=== PATIENT | female | born 1955 | race Caucasian/White ===

== ENCOUNTER 2021-04-16 05:50 | Day surgery (SDC) | payer MEDICARE ==
[2021-04-16] MEDS ORDERED: Lactated Ringers 1,000 ML IV SCH (06:30)
[2021-04-16] MEDS ORDERED: DIPRIVAN 200 MG/20 ML IV ONE (07:23)
[2021-04-16] MEDS ORDERED: Xylocaine-Mpf 2% 5 Ml Vial ONE (07:23)
[2021-04-16] MEDS ORDERED: SUBLIMAZE 100 MCG/2 ML ONE (07:24)
[2021-04-16 09:04] VITALS: BP 121/80; PULSE 80; O2SAT 92
--- NOTE | 2021-04-16 10:46 | OP ---
SURGERY DATE/TIME: 04/16/2021 7730 PREOPERATIVE DIAGNOSIS: Screening exam. POSTOPERATIVE DIAGNOSIS: Small sigmoid colon polyp and sigmoid diverticulosis. PROCEDURE: Colonoscopy with cold forceps biopsy. SURGEON: Dr. Ramesh. ANESTHESIA: MAC. Medications given by anesthesia department. HISTORY: The patient is a 65-year-old white female presenting now for screening colonoscopy. The patient was appraised of the risks of the procedure including the risk of perforation, phlebitis, untoward reaction to medication, bleeding and missed lesions. The patient verbalized her understanding and desired to have the procedure performed. DESCRIPTION OF PROCEDURE: The patient was given the medications by the anesthesia department. She had continuous pulse oximetry, ECG monitoring, intermittent blood pressure monitoring. The patient was placed in the left lateral decubitus position. A digital rectal examination was performed and revealed normal anal sphincter tone and no masses. The flexible Olympus pediatric colonoscope was used to intubate the rectum. A view of the colon was developed sequentially to the cecum. Upon insertion and withdrawal was noted to be a sigmoid diverticulosis which was mild to moderate in nature and a small sigmoid colon polyp that resembled more of a mucosal fold but looked like it might have some adenomatous change. Cold biopsy forceps were used to biopsy this lesion after which the scope was removed from the patient who tolerated the procedure well and sent back to OP recovery in good condition. The prep was noted to be fair.
== END 2021-04-16 09:20 | disposition home or self-care (01) ==
LOC: SDC 05:50
PROVIDERS: ATTEND Family Medicine
DX: Z12.11 Encounter for screening for malignant neoplasm of colon (principal); K63.5 Polyp of colon; K57.90 Diverticulosis of intestine, part unspecified, without perforation or abscess without bleeding
CPT/HCPCS: 88305; J2704; J3010

== ENCOUNTER 2022-01-11 12:40 | Observation (INO) | payer MEDICARE ==
[2022-01-11] MEDS ORDERED: BABY ASPIRIN 81 MG CHEW PO ONE (12:49)
--- NOTE | 2022-01-11 12:53 | ERPHSYRPT ---
- History of Present Illness Time Seen by Provider: 01/11/22 12:49 Historian: patient Exam Limitations: no limitations Physician History: 66 years old female with history of DVT on Coumadin, GERD presented to the ER with chief complaint of sudden onset of right shoulder pain with radiation to the left chest moderate intensity, dull aching, no obvious difficulty breathing or palpitations associated with that. Patient denies any history of CAD, chest pains in the past. Denies any fever chills or cough/sick contact. Timing/Duration: today, constant, gradual onset, worse Activities at Onset: rest Quality: aching, dullness Location: shoulder Severity of Pain-Max: moderate Severity of Pain-Current: mild Modifying Factors: Worsens With: change in position Associated Symptoms: hurts to breathe, No shortness of breath Prior Chest Pain/Cardiac Workup: no prior chest pain Nitro Today/Relief: no nitro taken today Aspirin Treatment Today: no aspirin today Allergies/Adverse Reactions: No Known Drug Allergies Allergy (Verified 01/11/22 12:47) Home Medications: Cholecalciferol (Vitamin D3) [Vitamin D] 400 unit PO DAILY 04/15/12 [History] Ferrous Sulfate [Iron Supplement] 65 mg PO DAILY 04/15/12 [History] Warfarin Sodium 5 mg [Jantoven] 5 mg PO DAILY 04/15/12 [History] Amlodipine Besylate 5 mg [Norvasc 5 mg] 5 mg PO DAILY 04/11/21 [History] Calcium Carbonate [Calcium] 600 mg PO DAILY 04/11/21 [History] Folic Acid 20 mg PO BID 04/11/21 [History] Mecobalamin [B12 Active] 1,000 mcg PO DAILY 04/11/21 [History] Omeprazole 40 mg PO BID 04/11/21 [History] - Review of Systems Constitutional: No Symptoms Eyes: No Symptoms Ears, Nose, & Throat: No Symptoms Respiratory: No Symptoms Cardiac: Chest Pain Abdominal/Gastrointestinal: No Symptoms Genitourinary Symptoms: No Symptoms Musculoskeletal: No Symptoms Skin: No Symptoms Neurological: No Symptoms Psychological: No Symptoms Endocrine: No Symptoms Hematologic/Lymphatic: No Symptoms Immunological/Allergic: No Symptoms - Past Medical History Pertinent Past Medical History: Yes Neurological History: Peripheral Neuropathy, Other ENT History: No Pertinent History Cardiac History: No Pertinent History Respiratory History: No Pertinent History Endocrine Medical History: No Pertinent History, Other Musculoskeletal History: Osteoarthritis, Other GI Medical History: No Pertinent History History: No Pertinent History Psycho-Social History: No Pertinent History Female Reproductive Disorders: No Pertinent History Other Medical History: SOB AT TIMES, SJOGRENS SYNDROME, TRIGEMINAL NEUROPATHY - Past Surgical History Past Surgical History: Yes Neuro Surgical History: No Pertinent History Cardiac: Cardiac Catheterization, Vascular Surgery, Other Respiratory: Other Gastrointestinal: No Pertinent History Genitourinary: No Pertinent History Musculoskeletal: No Pertinent History Female Surgical History: Hysterectomy, Lumpectomy Other Surgical History: vascular surgery on right hand, mino filter in left groin. lung surgery partial lobe removed right side - Social History Smoking Status: Never smoker Exposure to second hand smoke: No Drug Use: none Significant Family History: no pertinent family hx - Nursing Vital Signs Nursing Vital Signs: Initial Vital Signs Temperature 98 F 01/11/22 12:48 Pulse Rate 75 01/11/22 12:48 Respiratory Rate 19 01/11/22 12:48 Blood Pressure 112/86 01/11/22 12:48 O2 Sat by Pulse Oximetry 99 01/11/22 12:48 Pain Scale Pain Intensity 7 - Physical Exam General Appearance: no apparent distress, alert Eye Exam: PERRL/EOMI Ears, Nose, Throat Exam: normal ENT inspection, pharynx normal Neck Exam: normal inspection, non-tender, supple, full range of motion Respiratory Exam: normal breath sounds, lungs clear Cardiovascular Exam: regular rate/rhythm, normal heart sounds Gastrointestinal/Abdomen Exam: soft, normal bowel sounds, No tenderness Back Exam: normal inspection Extremity Exam: normal inspection, normal range of motion, pelvis stable Neurologic Exam: alert, oriented x 3, cooperative Skin Exam: normal color SpO2 Interpretation: normal SpO2: 94 O2 Delivery: Room Air - Course EKG Interpreted by Me: RATE (72), Sinus Rhythm, NORMAL AXIS, NORMAL INTERVALS, NORMAL QRS (T wave inversion anterolateral/inferior.) Ordered Tests: Active Orders 24 hr Category Date Time Status Hat Checker STAT Care 01/11/22 12:49 Active EKG-ER Only STAT Care 01/11/22 12:49 Active IV Insertion STAT Care 01/11/22 12:49 Active Oxygen-ED Only Nasal Cannula 2 lpm Care 01/11/22 12:49 Active CHEST 1 VIEW (PORTABLE) Stat Exams 01/11/22 12:49 Completed CBC W DIFF Stat Lab 01/11/22 12:57 Completed CMP Stat Lab 01/11/22 12:57 Completed NT PRO BNP Stat Lab 01/11/22 12:57 Completed PROTIME WITH INR Stat Lab 01/11/22 12:57 Completed TROPONIN Q4H Lab 01/11/22 12:57 Completed TROPONIN Q4H Lab 01/11/22 17:00 Ordered TROPONIN Q4H Lab 01/11/22 21:00 Ordered Medication Summary Discontinued Medications Generic Name Dose Route Start Last Admin Trade Name Jocelin PRN Reason Stop Dose Admin Aspirin 324 mg 01/11/22 12:49 01/11/22 13:05 Aspirin 81 Mg Tab.Chew PO 01/11/22 12:50 243 mg STAT ONE Administration Morphine Sulfate 2 mg 01/11/22 15:01 01/11/22 15:03 Morphine Sulfate 2 Mg/Ml Inj IV 01/11/22 15:02 2 mg STAT ONE Administration Morphine Sulfate Confirm 01/11/22 15:02 Morphine Sulfate 2 Mg/Ml Inj Administered 01/11/22 15:03 Dose 2 mg .ROUTE .STK-MED ONE Ondansetron HCl 4 mg 01/11/22 15:01 01/11/22 15:03 Ondansetron Hcl 4 Mg/2 Ml Vial IV 01/11/22 15:02 4 mg STAT ONE Administration Ondansetron HCl Confirm 01/11/22 15:02 Ondansetron Hcl 4 Mg/2 Ml Vial Administered 01/11/22 15:03 Dose 4 mg .ROUTE .STK-MED ONE Lab/Rad Data: Laboratory Result Diagrams 01/11/22 12:57 01/11/22 12:57 Laboratory Results 01/11/22 01/11/22 01/11/22 Range/Units 14:17 12:57 12:57 WBC (4.0-10.5) x10^3/uL RBC (4.1-5.4) x10^6/uL Hgb (12.0-16.0) g/dL Hct (35-47) % MCV (78-100) fL MCH (26-32) pg MCHC (32-36) g/dL RDW (11.5-14.0) % Plt Count (150-450) x10^3/uL MPV (7.5-11.0) fL Gran % (36.0-66.0) % Immature Gran % (Auto) (0.00-0.4) % Nucleat RBC Rel Count (0.00-0.1) % Eos # (Auto) (0-0.5) x10^3/uL Immature Gran # (Auto) (0.00-0.03) x10^3u/L Absolute Lymphs (auto) (1.0-4.6) x10^3/uL Absolute Monos (auto) (0.0-1.3) x10^3/uL Absolute Nucleated RBC (0.00-0.01) x10^3u/L Lymphocytes % (24.0-44.0) % Monocytes % (0.0-12.0) % Eosinophils % (0.00-5.0) % Basophils % (0.0-0.4) % Absolute Granulocytes (1.4-6.9) x10^3/uL Basophils # (0-0.4) x10^3/uL PT 24.0 H (9.4-12.5) SECONDS INR 2.46 (0.8-3.0) Sodium (137-145) mmol/L Potassium (3.5-5.1) mmol/L Chloride (98-107) mmol/L Carbon Dioxide (22-30) mmol/L Anion Gap (5-15) MEQ/L BUN (7-17) mg/dL Creatinine (0.52-1.04) mg/dL Estimated GFR ML/MIN Glucose (74-106) mg/dL Calcium (8.4-10.2) mg/dL Total Bilirubin (0.2-1.3) mg/dL AST (14-36) U/L ALT (0-35) U/L Alkaline Phosphatase (38-126) U/L Troponin I < 0.012 (0.000-0.034) ng/mL NT-Pro-B Natriuret Pep (0-900) pg/mL Serum Total Protein (6.3-8.2) g/dL Albumin (3.5-5.0) g/dL Influenza Type A Ag NEGATIVE (NEGATIVE) Influenza Type B Ag NEGATIVE (NEGATIVE) RSV (PCR) NEGATIVE (Negative) SARS-CoV-2 (PCR) NEGATIVE (NEGATIVE) 10/21/22 10/21/22 Range/Units 12:57 12:57 WBC 7.7 (4.0-10.5) x10^3/uL RBC 3.88 L (4.1-5.4) x10^6/uL Hgb 11.1 L (12.0-16.0) g/dL Hct 36.1 (35-47) % MCV 93.0 (78-100) fL MCH 28.6 (26-32) pg MCHC 30.7 L (32-36) g/dL RDW 15.8 H (11.5-14.0) % Plt Count 223 (150-450) x10^3/uL MPV 10.9 (7.5-11.0) fL Gran % 75.5 H (36.0-66.0) % Immature Gran % (Auto) 0.4 (0.00-0.4) % Nucleat RBC Rel Count 0.0 (0.00-0.1) % Eos # (Auto) 0.13 (0-0.5) x10^3/uL Immature Gran # (Auto) 0.03 (0.00-0.03) x10^3u/L Absolute Lymphs (auto) 1.05 (1.0-4.6) x10^3/uL Absolute Monos (auto) 0.65 (0.0-1.3) x10^3/uL Absolute Nucleated RBC 0.00 (0.00-0.01) x10^3u/L Lymphocytes % 13.6 L (24.0-44.0) % Monocytes % 8.4 (0.0-12.0) % Eosinophils % 1.7 (0.00-5.0) % Basophils % 0.4 (0.0-0.4) % Absolute Granulocytes 5.85 (1.4-6.9) x10^3/uL Basophils # 0.03 (0-0.4) x10^3/uL PT (9.4-12.5) SECONDS INR (0.8-3.0) Sodium 138 (137-145) mmol/L Potassium 4.7 (3.5-5.1) mmol/L Chloride 105 (98-107) mmol/L Carbon Dioxide 26 (22-30) mmol/L Anion Gap 11.2 (5-15) MEQ/L BUN 22 H (7-17) mg/dL Creatinine 0.91 (0.52-1.04) mg/dL Estimated GFR > 60.0 ML/MIN Glucose 102 (74-106) mg/dL Calcium 8.6 (8.4-10.2) mg/dL Total Bilirubin 1.00 (0.2-1.3) mg/dL AST 34 (14-36) U/L ALT 26 (0-35) U/L Alkaline Phosphatase 104 (38-126) U/L Troponin I (0.000-0.034) ng/mL NT-Pro-B Natriuret Pep 7310 H (0-900) pg/mL Serum Total Protein 7.7 (6.3-8.2) g/dL Albumin 3.9 (3.5-5.0) g/dL Influenza Type A Ag (NEGATIVE) Influenza Type B Ag (NEGATIVE) RSV (PCR) (Negative) SARS-CoV-2 (PCR) (NEGATIVE) - Progress Progress: improved Air Movement: good Progress Note: 01/11/22 15:26 66 years old is evaluated for right-sided chest pain. EKG showed sinus rhythm with T wave inversion. No previous comparison available. No previous chest pain work-up done. Chest x-ray negative for any acute cardiopulmonary findings and negative initial chest pain work-up including troponin. Patient is anticoagulated on Coumadin and is therapeutic 2.4. Patient is not hypoxic, tachypneic or tachycardic. Low suspicion for PE. Discussed with Dr. Mathur and patient is admitted for rule out ACS. Plan discussed with patient and family who understand and agree with it Blood Culture(s) Obtained: No Antibiotics given: No Discussed with : Camron Will see patient in: hospital (observation) Counseled pt/family regarding: lab results, diagnosis, need for follow-up, rad results - Departure Departure Disposition: Observation Clinical Impression: Chest pain, rule out acute myocardial infarction Condition: Stable Critical Care Time: No Referrals: [facility] [Primary Care Provider] - Follow up/PCP as directed
[2022-01-11 13:19] LABS: Absolute Neutrophil Ct (ANC) 5.85 x10^3/uL (1.4-6.9); Basophil (Absolute #) 0.03 x10^3/uL (0-0.4); Eosinophil % 1.7 % (0.00-5.0); Eosinophil (Absolute #) 0.13 x10^3/uL (0-0.5); Hematocrit 36.1 % (35-47); Hemoglobin 11.1 g/dL (12.0-16.0); Lymphocyte (Absolute #) 1.05 x10^3/uL (1.0-4.6); Lymphocytes % 13.6 % (24.0-44.0); Mean Corpuscular Hemoglobin 28.6 pg (26-32); Mean Corpuscular Hgb Concent. 30.7 g/dL (32-36); Mean Platelet Volume 10.9 fL (7.5-11.0); Monocyte (Absolute #) 0.65 x10^3/uL (0.0-1.3); Monocytes % 8.4 % (0.0-12.0); Neutrophil % 75.5 % (36.0-66.0); Platelet Count 223 x10^3/uL (150-450); Red Blood Count 3.88 x10^6/uL (4.1-5.4); Red Cell Distribution Width 15.8 % (11.5-14.0); White Blood Count 7.7 x10^3/uL (4.0-10.5)
[2022-01-11 13:34] LABS: INR 2.46 (0.8-3.0)
--- NOTE | 2022-01-11 13:36 | XRAY ---
Indication: Chest pain. Comparison: October 23, 2010 Portable chest demonstrates stable right lung postsurgical changes with right lung volume loss. Minimal left base fibrosis/scarring. Remaining heart and lungs unremarkable again with chunky subcarinal calcified node. Bony thorax intact with mild osteopenia and degenerative changes. Impression: Continued nonacute chest with chronic features.
[2022-01-11 13:44] LABS: ALBUMIN 3.9 g/dL (3.5-5.0); ALKALINE PHOSPHATASE 104 U/L (38-126); ANION GAP 11.2 MEQ/L (5-15); BLOOD UREA NITROGEN 22 mg/dL (7-17); CHLORIDE 105 mmol/L (98-107); Calcium 8.6 mg/dL (8.4-10.2); Carbon Dioxide 26 mmol/L (22-30); Creatinine 1 0.91 mg/dL (0.52-1.04); EST GLOMERULAR FILTRATION RATE > 60.0 ML/MIN; Glucose 102 mg/dL (74-106); NT PRO BNP 7310 pg/mL (0-900); Potassium 4.7 mmol/L (3.5-5.1); SGOT/AST 34 U/L (14-36); SGPT/ALT 26 U/L (0-35); SODIUM 138 mmol/L (137-145); Total Protein 7.7 g/dL (6.3-8.2)
[2022-01-11] MEDS ORDERED: MORPHINE SULFATE 2 MG INJ IV ONE (15:01)
[2022-01-11] MEDS ORDERED: Zofran 4 MG/2 ML VIAL IV ONE (15:01)
[2022-01-11 15:02] LABS: INFLUENZA A NEGATIVE (NEGATIVE); INFLUENZA B NEGATIVE (NEGATIVE); RESPIRATORY SYNCTIAL VIRUS NEGATIVE (Negative); SARS-CoV-2 Xpert Express NEGATIVE (NEGATIVE)
[2022-01-11] MEDS ORDERED: MORPHINE SULFATE 2 MG INJ ONE (15:02)
[2022-01-11] MEDS ORDERED: Zofran 4 MG/2 ML VIAL ONE (15:02)
[2022-01-11] MEDS ORDERED: Zofran 4 MG/2 ML VIAL IV PRN (16:03)
[2022-01-11] MEDS ORDERED: MORPHINE SULFATE 2 MG INJ IV PRN (16:03)
[2022-01-11] MEDS ORDERED: DUONEB 0.5-3 MG/3 ml Neb IH PRN (16:03)
[2022-01-11] MEDS ORDERED: TYLENOL 325 MG PO PRN (16:03)
[2022-01-11] MEDS ORDERED: Coumadin 3 MG PO SCH ×3 (17:51→18:00)
[2022-01-11] MEDS: NORCO 5/325 MG PO PRN (18:29)
[2022-01-11] MEDS ORDERED: Protonix 40MG Tablet PO SCH (20:00)
[2022-01-12] MEDS: NORCO 5/325 MG PO PRN (01:11)
[2022-01-12 05:55] LABS: Absolute Neutrophil Ct (ANC) 6.73 x10^3/uL (1.4-6.9); Basophil (Absolute #) 0.02 x10^3/uL (0-0.4); Eosinophil % 0.1 % (0.00-5.0); Eosinophil (Absolute #) 0.01 x10^3/uL (0-0.5); Hemoglobin 10.4 g/dL (12.0-16.0); Lymphocytes % 10.8 % (24.0-44.0); Mean Cell Volume 93.4 fL (78-100); Mean Corpuscular Hemoglobin 28.6 pg (26-32); Mean Corpuscular Hgb Concent. 30.6 g/dL (32-36); Mean Platelet Volume 10.8 fL (7.5-11.0); Monocyte (Absolute #) 0.68 x10^3/uL (0.0-1.3); Monocytes % 8.1 % (0.0-12.0); Neutrophil % 80.4 % (36.0-66.0); Platelet Count 178 x10^3/uL (150-450); Red Blood Count 3.64 x10^6/uL (4.1-5.4); Red Cell Distribution Width 15.6 % (11.5-14.0); White Blood Count 8.4 x10^3/uL (4.0-10.5)
[2022-01-12 06:00] LABS: ALBUMIN 3.6 g/dL (3.5-5.0); ALKALINE PHOSPHATASE 131 U/L (38-126); ANION GAP 12.9 MEQ/L (5-15); BLOOD UREA NITROGEN 23 mg/dL (7-17); CHLORIDE 101 mmol/L (98-107); Calcium 8.2 mg/dL (8.4-10.2); Carbon Dioxide 21 mmol/L (22-30); Creatinine 1 0.87 mg/dL (0.52-1.04); EST GLOMERULAR FILTRATION RATE > 60.0 ML/MIN; Glucose 115 mg/dL (74-106); Potassium 4.6 mmol/L (3.5-5.1); SGOT/AST 79 U/L (14-36); SGPT/ALT 56 U/L (0-35); SODIUM 131 mmol/L (137-145); Total Protein 7.5 g/dL (6.3-8.2)
[2022-01-12 06:24] LABS: PROTIME 30.3 SECONDS (9.4-12.5)
[2022-01-12 06:29] LABS: INR 3.18 (0.8-3.0)
[2022-01-12] MEDS ORDERED: PROTONIX 40 MG IV IV SCH (10:00)
--- NOTE | 2022-01-12 12:02 | PCM.SSS ---
History of Present Illness - Chief Complaint Chief Complaint: Chest pain rule out acute [place] History of Present Illness: is a 66 year old female patient of Dr Ramesh who presented to the ER with acute onset of chest pain. She had pain in her right chest and shoulder, worse with cough and deep inspiration, sharp in nature. she is on coumadin with therapeutic INR on arrival. pain is resolved the morning after admission and [place] ruled out. - Review of Systems Constitutional: No Fever, No Chills Respiratory: No Cough, No Short Of Breath Cardiac: Chest Pain (resolved) Abdominal/Gastrointestinal: No Abdominal Pain, No Nausea, No Vomiting, No Diarrhea Genitourinary Symptoms: No Dysuria Skin: No Rash Hematologic/Lymphatic: No Symptoms Medications & Allergies Home Medications: Home Medication List Cholecalciferol (Vitamin D3) [Vitamin D] 400 unit PO DAILY 04/15/12 [History Confirmed 01/11/22] Ferrous Sulfate [Iron Supplement] 65 mg PO DAILY 04/15/12 [History Confirmed 01/11/22] Warfarin Sodium 5 mg [Jantoven] 5 mg PO UD 04/15/12 [History Confirmed 01/11/22] Amlodipine Besylate 5 mg [Norvasc 5 mg] 5 mg PO DAILY 04/11/21 [History Confirmed 01/11/22] Calcium Carbonate [Calcium] 600 mg PO DAILY 04/11/21 [History Confirmed 01/11/22] Folic Acid 20 mg PO BID 04/11/21 [History Confirmed 01/11/22] Mecobalamin [B12 Active] 1,000 mcg PO DAILY 04/11/21 [History Confirmed 01/11/22] Omeprazole 40 mg PO BID 04/11/21 [History Confirmed 01/11/22] Warfarin Sodium 3 mg [Coumadin 3 MG] 3 mg PO DAILY 01/11/22 [History Confirmed 01/11/22] Allergies/Adverse Reactions: Allergies Allergy/AdvReac Type Severity Reaction Status Date / Time No Known Drug Allergies Allergy Verified 01/11/22 12:47 - Past Medical History Past Medical History: Yes Neurological History: Peripheral Neuropathy, Other ENT History: No Pertinent History Cardiac History: No Pertinent History Respiratory History: No Pertinent History Endocrine Medical History: No Pertinent History, Other Musculoskelatal History: Osteoarthritis, Other GI Medical History: No Pertinent History History: No Pertinent History Pyscho-Social History: No Pertinent History Reproductive Disorders: No Pertinent History Comment: SOB AT TIMES, SJOGRENS SYNDROME, TRIGEMINAL NEUROPATHY - Female History Are you now?: No - Past Surgical History Past Surgical History: Yes Neuro Surgical History: No Pertinent History Cardiac History: Cardiac Catheterization, Vascular Surgery, Other Respiratory Surgery: Other GI Surgical History: No Pertinent History Genitourinary Surgical Hx: No Pertinent History Musculskeletal Surgical Hx: No Pertinent History Female Surgical History: Hysterectomy, Lumpectomy Other Surgical History: vascular surgery on right hand, mino filter in left groin. lung surgery partial lobe removed right side - Social History Smoking Status: Never smoker Exposure to second hand smoke: No Alcohol: None Drug Use: none Significant Family History: no pertinent family hx - Physical Exam Vital Signs: Vital Signs - 24 hr Temp Pulse Resp BP Pulse Ox 01/12/22 07:27 97.6 F 86 16 87/57 01/12/22 04:00 97.6 F 86 18 95/59 01/11/22 23:52 98.4 F 87 17 87/55 01/11/22 20:00 98.9 F 82 20 88/63 01/11/22 16:13 97.8 F 83 20 95/65 01/11/22 16:12 84 18 94 L 01/11/22 16:03 97.8 F 83 18 95/65 01/11/22 15:27 94 L 01/11/22 15:00 74 22 01/11/22 14:45 75 18 101/73 94 L 01/11/22 12:48 98 F 75 19 112/86 99 General Appearance: no apparent distress, alert Neurologic Exam: alert, oriented x 3, cooperative, normal mood/affect, nml cerebellar function, nml station & gait, sensation nml, No motor deficits Eye Exam: PERRL/EOMI, eyes nml inspection Respiratory Exam: normal breath sounds, lungs clear, No respiratory distress Cardiovascular Exam: regular rate/rhythm, normal heart sounds, normal peripheral pulses Gastrointestinal/Abdomen Exam: soft, normal bowel sounds, No tenderness, No mass Back Exam: normal inspection, normal range of motion, No CVA tenderness, No vertebral tenderness Extremity Exam: normal inspection, normal range of motion, pelvis stable Results - Labs Lab/Micro Results: Lab Results-Last 24 Hours 10/01/11/22 01/11/22 Range/Units 12:57 12:57 12:57 WBC 7.7 (4.0-10.5) x10^3/uL RBC 3.88 L (4.1-5.4) x10^6/uL Hgb 11.1 L (12.0-16.0) g/dL Hct 36.1 (35-47) % MCV 93.0 (78-100) fL MCH 28.6 (26-32) pg MCHC 30.7 L (32-36) g/dL RDW 15.8 H (11.5-14.0) % Plt Count 223 (150-450) x10^3/uL MPV 10.9 (7.5-11.0) fL Gran % 75.5 H (36.0-66.0) % Immature Gran % (Auto) 0.4 (0.00-0.4) % Nucleat RBC Rel Count 0.0 (0.00-0.1) % Eos # (Auto) 0.13 (0-0.5) x10^3/uL Immature Gran # (Auto) 0.03 (0.00-0.03) x10^3u/L Absolute Lymphs (auto) 1.05 (1.0-4.6) x10^3/uL Absolute Monos (auto) 0.65 (0.0-1.3) x10^3/uL Absolute Nucleated RBC 0.00 (0.00-0.01) x10^3u/L Lymphocytes % 13.6 L (24.0-44.0) % Monocytes % 8.4 (0.0-12.0) % Eosinophils % 1.7 (0.00-5.0) % Basophils % 0.4 (0.0-0.4) % Absolute Granulocytes 5.85 (1.4-6.9) x10^3/uL Basophils # 0.03 (0-0.4) x10^3/uL PT 24.0 H (9.4-12.5) SECONDS INR 2.46 (0.8-3.0) Sodium 138 (137-145) mmol/L Potassium 4.7 (3.5-5.1) mmol/L Chloride 105 (98-107) mmol/L Carbon Dioxide 26 (22-30) mmol/L Anion Gap 11.2 (5-15) MEQ/L BUN 22 H (7-17) mg/dL Creatinine 0.91 (0.52-1.04) mg/dL Estimated GFR > 60.0 ML/MIN Glucose 102 (74-106) mg/dL Calcium 8.6 (8.4-10.2) mg/dL Total Bilirubin 1.00 (0.2-1.3) mg/dL AST 34 (14-36) U/L ALT 26 (0-35) U/L Alkaline Phosphatase 104 (38-126) U/L Troponin I (0.000-0.034) ng/mL NT-Pro-B Natriuret Pep 7310 H (0-900) pg/mL Serum Total Protein 7.7 (6.3-8.2) g/dL Albumin 3.9 (3.5-5.0) g/dL Influenza Type A Ag (NEGATIVE) Influenza Type B Ag (NEGATIVE) RSV (PCR) (Negative) SARS-CoV-2 (PCR) (NEGATIVE) 01/11/22 01/11/22 01/11/22 Range/Units 12:57 14:17 17:15 WBC (4.0-10.5) x10^3/uL RBC (4.1-5.4) x10^6/uL Hgb (12.0-16.0) g/dL Hct (35-47) % MCV (78-100) fL MCH (26-32) pg MCHC (32-36) g/dL RDW (11.5-14.0) % Plt Count (150-450) x10^3/uL MPV (7.5-11.0) fL Gran % (36.0-66.0) % Immature Gran % (Auto) (0.00-0.4) % Nucleat RBC Rel Count (0.00-0.1) % Eos # (Auto) (0-0.5) x10^3/uL Immature Gran # (Auto) (0.00-0.03) x10^3u/L Absolute Lymphs (auto) (1.0-4.6) x10^3/uL Absolute Monos (auto) (0.0-1.3) x10^3/uL Absolute Nucleated RBC (0.00-0.01) x10^3u/L Lymphocytes % (24.0-44.0) % Monocytes % (0.0-12.0) % Eosinophils % (0.00-5.0) % Basophils % (0.0-0.4) % Absolute Granulocytes (1.4-6.9) x10^3/uL Basophils # (0-0.4) x10^3/uL PT (9.4-12.5) SECONDS INR (0.8-3.0) Sodium (137-145) mmol/L Potassium (3.5-5.1) mmol/L Chloride (98-107) mmol/L Carbon Dioxide (22-30) mmol/L Anion Gap (5-15) MEQ/L BUN (7-17) mg/dL Creatinine (0.52-1.04) mg/dL Estimated GFR ML/MIN Glucose (74-106) mg/dL Calcium (8.4-10.2) mg/dL Total Bilirubin (0.2-1.3) mg/dL AST (14-36) U/L ALT (0-35) U/L Alkaline Phosphatase (38-126) U/L Troponin I < 0.012 < 0.012 (0.000-0.034) ng/mL NT-Pro-B Natriuret Pep (0-900) pg/mL Serum Total Protein (6.3-8.2) g/dL Albumin (3.5-5.0) g/dL Influenza Type A Ag NEGATIVE (NEGATIVE) Influenza Type B Ag NEGATIVE (NEGATIVE) RSV (PCR) NEGATIVE (Negative) SARS-CoV-2 (PCR) NEGATIVE (NEGATIVE) 01/11/22 01/12/22 01/12/22 Range/Units 21:21 05:33 05:33 WBC 8.4 (4.0-10.5) x10^3/uL RBC 3.64 L (4.1-5.4) x10^6/uL Hgb 10.4 L (12.0-16.0) g/dL Hct 34.0 L (35-47) % MCV 93.4 (78-100) fL MCH 28.6 (26-32) pg MCHC 30.6 L (32-36) g/dL RDW 15.6 H (11.5-14.0) % Plt Count 178 (150-450) x10^3/uL MPV 10.8 (7.5-11.0) fL Gran % 80.4 H (36.0-66.0) % Immature Gran % (Auto) 0.4 (0.00-0.4) % Nucleat RBC Rel Count 0.0 (0.00-0.1) % Eos # (Auto) 0.01 (0-0.5) x10^3/uL Immature Gran # (Auto) 0.03 (0.00-0.03) x10^3u/L Absolute Lymphs (auto) 0.90 L (1.0-4.6) x10^3/uL Absolute Monos (auto) 0.68 (0.0-1.3) x10^3/uL Absolute Nucleated RBC 0.00 (0.00-0.01) x10^3u/L Lymphocytes % 10.8 L (24.0-44.0) % Monocytes % 8.1 (0.0-12.0) % Eosinophils % 0.1 (0.00-5.0) % Basophils % 0.2 (0.0-0.4) % Absolute Granulocytes 6.73 (1.4-6.9) x10^3/uL Basophils # 0.02 (0-0.4) x10^3/uL PT (9.4-12.5) SECONDS INR (0.8-3.0) Sodium 131 L D (137-145) mmol/L Potassium 4.6 (3.5-5.1) mmol/L Chloride 101 (98-107) mmol/L Carbon Dioxide 21 L (22-30) mmol/L Anion Gap 12.9 (5-15) MEQ/L BUN 23 H (7-17) mg/dL Creatinine 0.87 (0.52-1.04) mg/dL Estimated GFR > 60.0 ML/MIN Glucose 115 H (74-106) mg/dL Calcium 8.2 L (8.4-10.2) mg/dL Total Bilirubin 0.80 (0.2-1.3) mg/dL AST 79 H (14-36) U/L ALT 56 H (0-35) U/L Alkaline Phosphatase 131 H (38-126) U/L Troponin I < 0.012 (0.000-0.034) ng/mL NT-Pro-B Natriuret Pep (0-900) pg/mL Serum Total Protein 7.5 (6.3-8.2) g/dL Albumin 3.6 (3.5-5.0) g/dL Influenza Type A Ag (NEGATIVE) Influenza Type B Ag (NEGATIVE) RSV (PCR) (Negative) SARS-CoV-2 (PCR) (NEGATIVE) 01/12/22 Range/Units 05:33 WBC (4.0-10.5) x10^3/uL RBC (4.1-5.4) x10^6/uL Hgb (12.0-16.0) g/dL Hct (35-47) % MCV (78-100) fL MCH (26-32) pg MCHC (32-36) g/dL RDW (11.5-14.0) % Plt Count (150-450) x10^3/uL MPV (7.5-11.0) fL Gran % (36.0-66.0) % Immature Gran % (Auto) (0.00-0.4) % Nucleat RBC Rel Count (0.00-0.1) % Eos # (Auto) (0-0.5) x10^3/uL Immature Gran # (Auto) (0.00-0.03) x10^3u/L Absolute Lymphs (auto) (1.0-4.6) x10^3/uL Absolute Monos (auto) (0.0-1.3) x10^3/uL Absolute Nucleated RBC (0.00-0.01) x10^3u/L Lymphocytes % (24.0-44.0) % Monocytes % (0.0-12.0) % Eosinophils % (0.00-5.0) % Basophils % (0.0-0.4) % Absolute Granulocytes (1.4-6.9) x10^3/uL Basophils # (0-0.4) x10^3/uL PT 30.3 H (9.4-12.5) SECONDS INR 3.18 H D (0.8-3.0) Sodium (137-145) mmol/L Potassium (3.5-5.1) mmol/L Chloride (98-107) mmol/L Carbon Dioxide (22-30) mmol/L Anion Gap (5-15) MEQ/L BUN (7-17) mg/dL Creatinine (0.52-1.04) mg/dL Estimated GFR ML/MIN Glucose (74-106) mg/dL Calcium (8.4-10.2) mg/dL Total Bilirubin (0.2-1.3) mg/dL AST (14-36) U/L ALT (0-35) U/L Alkaline Phosphatase (38-126) U/L Troponin I (0.000-0.034) ng/mL NT-Pro-B Natriuret Pep (0-900) pg/mL Serum Total Protein (6.3-8.2) g/dL Albumin (3.5-5.0) g/dL Influenza Type A Ag (NEGATIVE) Influenza Type B Ag (NEGATIVE) RSV (PCR) (Negative) SARS-CoV-2 (PCR) (NEGATIVE) - Radiology Impressions Radiology Exams & Impressions: Radiology Procedures Category Date Time Status CHEST 1 VIEW (PORTABLE) Stat Exams 01/11/22 12:49 Completed - Other Procedures and Tests Respiratory Therapy 01/11/22 16:12 Respiratory Therapy Assessment ONCE Assessment/Plan (1) Chest pain, rule out acute myocardial infarction Current Visit: Yes Status: Acute Assessment & Plan: seems noncardiac in nature, has no pain at discharge. can take tylenol prn at home and f/u with Dr Ramesh Code(s): R07.9 - CHEST PAIN, UNSPECIFIED Hospital Summary - Vitals & Intake/Output Vital Signs: Vital Signs Temperature 97.6 F 01/12/22 07:27 Pulse Rate 86 01/12/22 07:27 Respiratory Rate 16 01/12/22 07:27 Blood Pressure 87/57 01/12/22 07:27 O2 Sat by Pulse Oximetry 94 L 01/11/22 16:12 Intake & Output: Intake & Output 01/09/22 01/10/22 01/11/22 01/12/22 11:59 11:59 11:59 11:59 Intake Total 1800 Balance 1800 Weight 65.6 kg - Lab Result Diagrams: 01/12/22 05:33 01/12/22 05:33 Lab Results-Last 24 Hrs: Lab Results-Last 24 Hours 01/11/22 01/11/22 01/11/22 Range/Units 12:57 12:57 12:57 WBC 7.7 (4.0-10.5) x10^3/uL RBC 3.88 L (4.1-5.4) x10^6/uL Hgb 11.1 L (12.0-16.0) g/dL Hct 36.1 (35-47) % MCV 93.0 (78-100) fL MCH 28.6 (26-32) pg MCHC 30.7 L (32-36) g/dL RDW 15.8 H (11.5-14.0) % Plt Count 223 (150-450) x10^3/uL MPV 10.9 (7.5-11.0) fL Gran % 75.5 H (36.0-66.0) % Immature Gran % (Auto) 0.4 (0.00-0.4) % Nucleat RBC Rel Count 0.0 (0.00-0.1) % Eos # (Auto) 0.13 (0-0.5) x10^3/uL Immature Gran # (Auto) 0.03 (0.00-0.03) x10^3u/L Absolute Lymphs (auto) 1.05 (1.0-4.6) x10^3/uL Absolute Monos (auto) 0.65 (0.0-1.3) x10^3/uL Absolute Nucleated RBC 0.00 (0.00-0.01) x10^3u/L Lymphocytes % 13.6 L (24.0-44.0) % Monocytes % 8.4 (0.0-12.0) % Eosinophils % 1.7 (0.00-5.0) % Basophils % 0.4 (0.0-0.4) % Absolute Granulocytes 5.85 (1.4-6.9) x10^3/uL Basophils # 0.03 (0-0.4) x10^3/uL PT 24.0 H (9.4-12.5) SECONDS INR 2.46 (0.8-3.0) Sodium 138 (137-145) mmol/L Potassium 4.7 (3.5-5.1) mmol/L Chloride 105 (98-107) mmol/L Carbon Dioxide 26 (22-30) mmol/L Anion Gap 11.2 (5-15) MEQ/L BUN 22 H (7-17) mg/dL Creatinine 0.91 (0.52-1.04) mg/dL Estimated GFR > 60.0 ML/MIN Glucose 102 (74-106) mg/dL Calcium 8.6 (8.4-10.2) mg/dL Total Bilirubin 1.00 (0.2-1.3) mg/dL AST 34 (14-36) U/L ALT 26 (0-35) U/L Alkaline Phosphatase 104 (38-126) U/L Troponin I (0.000-0.034) ng/mL NT-Pro-B Natriuret Pep 7310 H (0-900) pg/mL Serum Total Protein 7.7 (6.3-8.2) g/dL Albumin 3.9 (3.5-5.0) g/dL Influenza Type A Ag (NEGATIVE) Influenza Type B Ag (NEGATIVE) RSV (PCR) (Negative) SARS-CoV-2 (PCR) (NEGATIVE) 01/11/22 01/11/22 01/11/22 Range/Units 12:57 14:17 17:15 WBC (4.0-10.5) x10^3/uL RBC (4.1-5.4) x10^6/uL Hgb (12.0-16.0) g/dL Hct (35-47) % MCV (78-100) fL MCH (26-32) pg MCHC (32-36) g/dL RDW (11.5-14.0) % Plt Count (150-450) x10^3/uL MPV (7.5-11.0) fL Gran % (36.0-66.0) % Immature Gran % (Auto) (0.00-0.4) % Nucleat RBC Rel Count (0.00-0.1) % Eos # (Auto) (0-0.5) x10^3/uL Immature Gran # (Auto) (0.00-0.03) x10^3u/L Absolute Lymphs (auto) (1.0-4.6) x10^3/uL Absolute Monos (auto) (0.0-1.3) x10^3/uL Absolute Nucleated RBC (0.00-0.01) x10^3u/L Lymphocytes % (24.0-44.0) % Monocytes % (0.0-12.0) % Eosinophils % (0.00-5.0) % Basophils % (0.0-0.4) % Absolute Granulocytes (1.4-6.9) x10^3/uL Basophils # (0-0.4) x10^3/uL PT (9.4-12.5) SECONDS INR (0.8-3.0) Sodium (137-145) mmol/L Potassium (3.5-5.1) mmol/L Chloride (98-107) mmol/L Carbon Dioxide (22-30) mmol/L Anion Gap (5-15) MEQ/L BUN (7-17) mg/dL Creatinine (0.52-1.04) mg/dL Estimated GFR ML/MIN Glucose (74-106) mg/dL Calcium (8.4-10.2) mg/dL Total Bilirubin (0.2-1.3) mg/dL AST (14-36) U/L ALT (0-35) U/L Alkaline Phosphatase (38-126) U/L Troponin I < 0.012 < 0.012 (0.000-0.034) ng/mL NT-Pro-B Natriuret Pep (0-900) pg/mL Serum Total Protein (6.3-8.2) g/dL Albumin (3.5-5.0) g/dL Influenza Type A Ag NEGATIVE (NEGATIVE) Influenza Type B Ag NEGATIVE (NEGATIVE) RSV (PCR) NEGATIVE (Negative) SARS-CoV-2 (PCR) NEGATIVE (NEGATIVE) 01/11/22 01/12/22 01/12/22 Range/Units 21:21 05:33 05:33 WBC 8.4 (4.0-10.5) x10^3/uL RBC 3.64 L (4.1-5.4) x10^6/uL Hgb 10.4 L (12.0-16.0) g/dL Hct 34.0 L (35-47) % MCV 93.4 (78-100) fL MCH 28.6 (26-32) pg MCHC 30.6 L (32-36) g/dL RDW 15.6 H (11.5-14.0) % Plt Count 178 (150-450) x10^3/uL MPV 10.8 (7.5-11.0) fL Gran % 80.4 H (36.0-66.0) % Immature Gran % (Auto) 0.4 (0.00-0.4) % Nucleat RBC Rel Count 0.0 (0.00-0.1) % Eos # (Auto) 0.01 (0-0.5) x10^3/uL Immature Gran # (Auto) 0.03 (0.00-0.03) x10^3u/L Absolute Lymphs (auto) 0.90 L (1.0-4.6) x10^3/uL Absolute Monos (auto) 0.68 (0.0-1.3) x10^3/uL Absolute Nucleated RBC 0.00 (0.00-0.01) x10^3u/L Lymphocytes % 10.8 L (24.0-44.0) % Monocytes % 8.1 (0.0-12.0) % Eosinophils % 0.1 (0.00-5.0) % Basophils % 0.2 (0.0-0.4) % Absolute Granulocytes 6.73 (1.4-6.9) x10^3/uL Basophils # 0.02 (0-0.4) x10^3/uL PT (9.4-12.5) SECONDS INR (0.8-3.0) Sodium 131 L D (137-145) mmol/L Potassium 4.6 (3.5-5.1) mmol/L Chloride 101 (98-107) mmol/L Carbon Dioxide 21 L (22-30) mmol/L Anion Gap 12.9 (5-15) MEQ/L BUN 23 H (7-17) mg/dL Creatinine 0.87 (0.52-1.04) mg/dL Estimated GFR > 60.0 ML/MIN Glucose 115 H (74-106) mg/dL Calcium 8.2 L (8.4-10.2) mg/dL Total Bilirubin 0.80 (0.2-1.3) mg/dL AST 79 H (14-36) U/L ALT 56 H (0-35) U/L Alkaline Phosphatase 131 H (38-126) U/L Troponin I < 0.012 (0.000-0.034) ng/mL NT-Pro-B Natriuret Pep (0-900) pg/mL Serum Total Protein 7.5 (6.3-8.2) g/dL Albumin 3.6 (3.5-5.0) g/dL Influenza Type A Ag (NEGATIVE) Influenza Type B Ag (NEGATIVE) RSV (PCR) (Negative) SARS-CoV-2 (PCR) (NEGATIVE) 01/12/22 Range/Units 05:33 WBC (4.0-10.5) x10^3/uL RBC (4.1-5.4) x10^6/uL Hgb (12.0-16.0) g/dL Hct (35-47) % MCV (78-100) fL MCH (26-32) pg MCHC (32-36) g/dL RDW (11.5-14.0) % Plt Count (150-450) x10^3/uL MPV (7.5-11.0) fL Gran % (36.0-66.0) % Immature Gran % (Auto) (0.00-0.4) % Nucleat RBC Rel Count (0.00-0.1) % Eos # (Auto) (0-0.5) x10^3/uL Immature Gran # (Auto) (0.00-0.03) x10^3u/L Absolute Lymphs (auto) (1.0-4.6) x10^3/uL Absolute Monos (auto) (0.0-1.3) x10^3/uL Absolute Nucleated RBC (0.00-0.01) x10^3u/L Lymphocytes % (24.0-44.0) % Monocytes % (0.0-12.0) % Eosinophils % (0.00-5.0) % Basophils % (0.0-0.4) % Absolute Granulocytes (1.4-6.9) x10^3/uL Basophils # (0-0.4) x10^3/uL PT 30.3 H (9.4-12.5) SECONDS INR 3.18 H D (0.8-3.0) Sodium (137-145) mmol/L Potassium (3.5-5.1) mmol/L Chloride (98-107) mmol/L Carbon Dioxide (22-30) mmol/L Anion Gap (5-15) MEQ/L BUN (7-17) mg/dL Creatinine (0.52-1.04) mg/dL Estimated GFR ML/MIN Glucose (74-106) mg/dL Calcium (8.4-10.2) mg/dL Total Bilirubin (0.2-1.3) mg/dL AST (14-36) U/L ALT (0-35) U/L Alkaline Phosphatase (38-126) U/L Troponin I (0.000-0.034) ng/mL NT-Pro-B Natriuret Pep (0-900) pg/mL Serum Total Protein (6.3-8.2) g/dL Albumin (3.5-5.0) g/dL Influenza Type A Ag (NEGATIVE) Influenza Type B Ag (NEGATIVE) RSV (PCR) (Negative) SARS-CoV-2 (PCR) (NEGATIVE) - Radiology Exams Ordered Rad Exams-Entire Visit: Radiology Procedures Category Date Time Status CHEST 1 VIEW (PORTABLE) Stat Exams 01/11/22 12:49 Completed - Procedures and Test Procedures and Tests throughout Hospitalization: Therapy Orders & Screens 01/11/22 16:12 Respiratory Therapy Assessment ONCE Comment: Diagnosis: Chest pain rule out acute [place] - Discharge Disposition: Home, Self-Care Condition: Stable Prescriptions: Continue Ferrous Sulfate [Iron Supplement] 65 mg PO DAILY Cholecalciferol (Vitamin D3) [Vitamin D] 400 unit PO DAILY Warfarin Sodium 5 mg [Jantoven] 5 mg PO UD Calcium Carbonate [Calcium] 600 mg PO DAILY Folic Acid 20 mg PO BID Amlodipine Besylate 5 mg [Norvasc 5 mg] 5 mg PO DAILY Omeprazole 40 mg PO BID Mecobalamin [B12 Active] 1,000 mcg PO DAILY Warfarin Sodium 3 mg [Coumadin 3 MG] 3 mg PO DAILY Instructions: Shoulder Pain (DC) Follow up with: RINA SANCHEZ MD [ACTIVE STAFF] - Call for Appointment (CALL ON Friday01/14/22 AND SCHEDULE FOLLOW UP. ) Forms: Discharge Instructions
[2022-01-12 12:50] VITALS: BP 87/54; PULSE 82; O2SAT 92
== END 2022-01-12 14:05 | disposition home or self-care (01) ==
LOC: ED 12:40 → MED SURG 15:56
PROVIDERS: ADMIT Family Medicine; ATTEND Family Medicine
DX: R07.9 Chest pain, unspecified (principal); Z79.899 Other long term (current) drug therapy; Z79.01 Long term (current) use of anticoagulants; Z20.828 Contact with and (suspected) exposure to other viral communicable diseases
CPT/HCPCS: 0241U; 36000; 36415; 71045; 80053; 83880; 84484; 85025; 85610; 93005; 93041; 93268; 96374; 96375; 99285; G0378; J2270; J2405; A9270-GY

== ENCOUNTER 2022-11-28 17:16 | Observation (INO) | payer MEDICARE ==
[2022-11-28] MEDS ORDERED: SUBLIMAZE 100 MCG/2 ML IV ONE (17:49)
[2022-11-28] MEDS ORDERED: Zofran 4 MG/2 ML VIAL IV ONE (17:49)
[2022-11-28] MEDS ORDERED: SUBLIMAZE 100 MCG/2 ML ONE (17:53)
[2022-11-28] MEDS ORDERED: Zofran 4 MG/2 ML VIAL ONE (17:53)
[2022-11-28 18:26] LABS: Hematocrit 41.4 % (35-47); Hemoglobin 13.2 g/dL (12.0-16.0); Mean Cell Volume 94.1 fL (78-100); Mean Corpuscular Hgb Concent. 31.9 g/dL (32-36); Mean Platelet Volume 9.6 fL (7.5-11.0); Platelet Count 163 x10^3/uL (150-450); Red Cell Distribution Width 19.5 % (11.5-14.0); White Blood Count 13.5 x10^3/uL (4.0-10.5)
[2022-11-28 18:40] LABS: INR 1.96 (0.8-3.0); PROTIME 20.3 SECONDS (9.4-12.5)
[2022-11-28 18:50] LABS: ALBUMIN 3.1 g/dL (3.5-5.0); ALKALINE PHOSPHATASE 92 U/L (38-126); ANION GAP 8.4 MEQ/L (5-15); BLOOD UREA NITROGEN 28 mg/dL (7-17); CHLORIDE 103 mmol/L (98-107); Calcium 7.9 mg/dL (8.4-10.2); Carbon Dioxide 27 mmol/L (22-30); Creatinine 1 0.57 mg/dL (0.52-1.04); EST GLOMERULAR FILTRATION RATE > 60.0 ML/MIN; Glucose 116 mg/dL (74-106); NT PRO BNPII 12500 pg/mL (<300); Potassium 3.9 mmol/L (3.5-5.1); SGOT/AST 28 U/L (14-36); SGPT/ALT 35 U/L (0-35); SODIUM 134 mmol/L (137-145); Total Protein 5.9 g/dL (6.3-8.2)
[2022-11-28] MEDS ORDERED: CLINDAMYCIN-D5W 600 MG/50 ML*** 600 MG/50 ML BAG IV STA (19:37)
[2022-11-28] MEDS ORDERED: PIPERACILLIN/TAZOBACTAM 3.375 GM in Sodium Chloride 100ML MINI-BAG PLUS 100 ML IV ONE (19:37)
[2022-11-28 20:00] LABS: Eosinophil 1 % (0.00-3.0); Lymphocytes 6 % (24-44); Microcytosis 1+; Neutrophils 93 % (36.0-66.0); Platelet Estimate NORMAL (NORMAL); Total Cells Counted 100
[2022-11-28] MEDS ORDERED: NORCO 5/325 MG PO ONE (20:12)
[2022-11-28] MEDS ORDERED: NORCO 5/325 MG ONE (20:27)
[2022-11-28] MEDS ORDERED: PIPERACILLIN/TAZOBACTAM IV ONE (20:27)
[2022-11-28] MEDS ORDERED: Sodium Chloride 100ML MINI-BAG PLUS 100 ML IV ONE (20:28)
--- NOTE | 2022-11-28 20:46 | ERPHSYRPT ---
- History of Present Illness Time Seen by Provider: 11/28/22 17:30 Source: patient Exam Limitations: no limitations Patient Subjective Stated Complaint: pt states that she has this spot on her leg and the pain has gotten worse Triage Nursing Assessment: pt came into the er via ambulance; pt was transferred to cot per ems staff; axo x4; c/o LLE pain; redness present to LLE; BLE pitting edema; weak pedal pulses; 3 cm diameter reddened area on medial left calf; no warmth present to LLE; vitals wnl; no respiratory distress present Physician History: 67-year-old female with multiple medical problems including metastatic lung cancer status post chemo and radiation to the brain, hypertension, COPD, chronic lower extremity swelling, chronic DVT, PE, 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 Patient reports moderate to severe sharp pain with palpation and difficult ambulation because of pain in the muscle. Denies any fall or trauma. No fever or chills reported. Allergies/Adverse Reactions: No Known Drug Allergies Allergy (Verified 01/11/22 12:47) Home Medications: Ferrous Sulfate [Iron Supplement] 65 mg PO DAILY 04/15/12 [History] Mecobalamin [B12 Active] 1,000 mcg PO DAILY 04/11/21 [History] Omeprazole 40 mg PO BID 04/11/21 [History] Warfarin Sodium 3 mg [Coumadin 3 MG] 3 mg PO UD 01/11/22 [History] Atorvastatin Calcium 10 mg PO HS 11/28/22 [History] Calcium Carbonate [Calcium] 600 mg PO DAILY 11/28/22 [History] Folic Acid 20 mg PO BID 11/28/22 [History] Meclizine HCl 25 mg [Antivert 25 mg] 25 mg PO TID PRN 11/28/22 [History] Warfarin Sodium 2 mg PO UD 11/28/22 [History] carvediloL [Carvedilol] 6.25 mg PO BID 11/28/22 [History] dexAMETHasone [Dexamethasone] 4 mg PO BID 11/28/22 [History] Hx Tetanus, Diphtheria Vaccination/Date Given: No Hx Influenza Vaccination/Date Given: Yes Hx Pneumococcal Vaccination/Date Given: Yes Travel Risk - International Travel Have you traveled outside of the country in past 3 weeks: No - Coronavirus Screening Are you exhibiting any of the following symptoms?: No Close contact with a COVID-19 positive Pt in past 14-21 Days: No - Vaccine Status Have you recieved a Covid-19 vaccination: Yes Molding Manager: Pfizer - Vaccination Dates Date of 2cond Vaccination (if applicable): 2020 - Review of Systems Constitutional: Fatigue, Weakness Eyes: No Symptoms Ears, Nose, & Throat: No Symptoms Respiratory: Dyspnea Cardiac: Edema Abdominal/Gastrointestinal: No Symptoms Genitourinary Symptoms: No Symptoms Musculoskeletal: Arthralgias Skin: Induration, Rash, Skin Lesions Neurological: No Symptoms Endocrine: No Symptoms Hematologic/Lymphatic: No Symptoms - Past Medical History Pertinent Past Medical History: Yes Neurological History: Peripheral Neuropathy, Other ENT History: No Pertinent History Cardiac History: No Pertinent History Respiratory History: No Pertinent History Endocrine Medical History: No Pertinent History, Other Musculoskeletal History: Osteoarthritis, Other GI Medical History: No Pertinent History History: No Pertinent History Psycho-Social History: No Pertinent History Female Reproductive Disorders: No Pertinent History Other Medical History: SOB AT TIMES, SJOGRENS SYNDROME, TRIGEMINAL NEUROPATHY - Past Surgical History Past Surgical History: Yes Neuro Surgical History: No Pertinent History Cardiac: Cardiac Catheterization, Vascular Surgery, Other Respiratory: Other Gastrointestinal: No Pertinent History Genitourinary: No Pertinent History Musculoskeletal: No Pertinent History Female Surgical History: Hysterectomy, Lumpectomy Other Surgical History: vascular surgery on right hand, mino filter in left groin. lung surgery partial lobe removed right side - Social History Smoking Status: Never smoker Exposure to second hand smoke: Yes Drug Use: none Patient Lives Alone: No Significant Family History: no pertinent family hx - Nursing Vital Signs Nursing Vital Signs: Initial Vital Signs Pulse Rate 88 11/28/22 17:17 Blood Pressure 117/80 11/28/22 17:17 O2 Sat by Pulse Oximetry 98 11/28/22 17:17 Pain Scale Pain Intensity 10 - Physical Exam General Appearance: no apparent distress, alert Eye Exam: PERRL/EOMI Ears, Nose, Throat Exam: normal ENT inspection Neck Exam: normal inspection, full range of motion Respiratory Exam: diminished breath sounds, wheezing Cardiovascular Exam: regular rate/rhythm, normal heart sounds Gastrointestinal/Abdomen Exam: soft, normal bowel sounds, No tenderness Back Exam: normal inspection Extremity Exam: normal range of motion, swelling (Bilateral lower extremity 2+ pitting edema. Redness/erythema on medial calf. Weakly palpable bilateral dorsalis pedis. Cap refill less than 3 seconds.) Neurologic Exam: alert, oriented x 3, cooperative Skin Exam: normal color, rash SpO2 Interpretation: normal SpO2: 97 Ordered Tests: Active Orders 24 hr Category Date Time Status VENOUS UNILAT/LIMITED EXTREMIT [US] Stat Exams 11/28/22 17:49 Taken BLOOD CULTURE Stat Lab 11/28/22 18:20 Received CBC W DIFF Stat Lab 11/28/22 18:10 Completed CMP Stat Lab 11/28/22 18:10 Completed Lactic Acid Stat Lab 11/28/22 18:12 Completed Lactic Acid Stat Lab 11/28/22 20:25 Stop Req Manual Differential NC Stat Lab 11/28/22 18:10 Completed NT PRO BNPII Stat Lab 11/28/22 18:10 Completed PROCALCITONIN Stat Lab 11/28/22 18:10 Completed PROTIME WITH INR Stat Lab 11/28/22 18:10 Completed UA W/RFX UR CULTURE Stat Lab 11/28/22 17:48 Ordered Medication Summary Discontinued Medications Generic Name Dose Route Start Last Admin Trade Name Jocelin PRN Reason Stop Dose Admin Hydrocodone Bitart/Acetaminophen 1 tab 11/28/22 20:12 11/28/22 20:33 Hydrocodone/Apap 5/325 1 Tab Tablet PO 11/28/22 20:13 1 tab STAT ONE Administration Hydrocodone Bitart/Acetaminophen Confirm 11/28/22 20:27 Hydrocodone/Apap 5/325 1 Tab Tablet Administered 11/28/22 20:28 Dose 1 tab .ROUTE .STK-MED ONE Fentanyl Citrate 50 mcg 11/28/22 17:49 11/28/22 17:54 Fentanyl Citrate 100 Mcg/2 Ml* Vial IV 11/28/22 17:50 50 mcg STAT ONE Administration Fentanyl Citrate Confirm 11/28/22 17:53 Fentanyl Citrate 100 Mcg/2 Ml* Vial Administered 11/28/22 17:54 Dose 100 mcg .ROUTE .STK-MED ONE Clindamycin HCl/Dextrose 600 mg in 50 mls @ 100 mls/hr 11/28/22 19:37 Clindamycin-D5w 600 Mg/50 Ml IV 11/28/22 20:06 STAT STA Piperacillin Sod/Tazobactam 100 mls @ 200 mls/hr 11/28/22 19:37 11/28/22 2 0:34 Sod 3.375 gm/ Sodium Chloride IV 11/28/22 20:06 200 mls/hr STAT ONE Administration Sodium Chloride Confirm 11/28/22 20:28 Sodium Chloride 100ml Mini-Bag Plus Administered 11/28/22 20:29 Dose 100 mls @ ud IV .STK-MED ONE Ondansetron HCl 4 mg 11/28/22 17:49 11/28/22 17:55 Ondansetron Hcl 4 Mg/2 Ml Vial IV 11/28/22 17:50 4 mg STAT ONE Administration Ondansetron HCl Confirm 11/28/22 17:53 Ondansetron Hcl 4 Mg/2 Ml Vial Administered 11/28/22 17:54 Dose 4 mg .ROUTE .STK-MED ONE Piperacillin Sod/Tazobactam Sod Confirm 11/28/22 20:27 Piperacillin/Tazobactam Sodium 3.375 Gm Vial Administered 11/28/22 20:28 Dose 3.375 gm IV .STK-MED ONE Lab/Rad Data: Laboratory Result Diagrams 11/28/22 18:10 11/28/22 18:10 Laboratory Results 11/28/22 11/28/22 11/28/22 Range/Units 18:12 18:10 18:10 WBC (4.0-10.5) x10^3/uL RBC (4.1-5.4) x10^6/uL Hgb (12.0-16.0) g/dL Hct (35-47) % MCV (78-100) fL MCH (26-32) pg MCHC (32-36) g/dL RDW (11.5-14.0) % Plt Count (150-450) x10^3/uL MPV (7.5-11.0) fL Segmented Neutrophils (36.0-66.0) % Lymphocytes (Manual) (24-44) % Eosinophils (Manual) (0.00-3.0) % Platelet Estimate (NORMAL) RBC Morphology Microcytosis PT 20.3 H (9.4-12.5) SECONDS INR 1.96 (0.8-3.0) Sodium (137-145) mmol/L Potassium (3.5-5.1) mmol/L Chloride (98-107) mmol/L Carbon Dioxide (22-30) mmol/L Anion Gap (5-15) MEQ/L BUN (7-17) mg/dL Creatinine (0.52-1.04) mg/dL Estimated GFR ML/MIN Glucose (74-106) mg/dL Lactic Acid 2.0 (0.4-2.0) Calcium (8.4-10.2) mg/dL Total Bilirubin (0.2-1.3) mg/dL AST (14-36) U/L ALT (0-35) U/L Alkaline Phosphatase (38-126) U/L NT-Pro-B Natriuret Pep (<300) pg/mL Serum Total Protein (6.3-8.2) g/dL Albumin (3.5-5.0) g/dL Procalcitonin 0.101 H (0.030-0.080) ng/mL 11/28/22 11/28/22 Range/Units 18:10 18:10 WBC 13.5 H (4.0-10.5) x10^3/uL RBC 4.40 (4.1-5.4) x10^6/uL Hgb 13.2 (12.0-16.0) g/dL Hct 41.4 (35-47) % MCV 94.1 (78-100) fL MCH 30.0 (26-32) pg MCHC 31.9 L (32-36) g/dL RDW 19.5 H (11.5-14.0) % Plt Count 163 (150-450) x10^3/uL MPV 9.6 (7.5-11.0) fL Segmented Neutrophils 93 H (36.0-66.0) % Lymphocytes (Manual) 6 L (24-44) % Eosinophils (Manual) 1 (0.00-3.0) % Platelet Estimate NORMAL (NORMAL) RBC Morphology ABNORMAL Microcytosis 1+ PT (9.4-12.5) SECONDS INR (0.8-3.0) Sodium 134 L (137-145) mmol/L Potassium 3.9 (3.5-5.1) mmol/L Chloride 103 (98-107) mmol/L Carbon Dioxide 27 (22-30) mmol/L Anion Gap 8.4 (5-15) MEQ/L BUN 28 H (7-17) mg/dL Creatinine 0.57 (0.52-1.04) mg/dL Estimated GFR > 60.0 ML/MIN Glucose 116 H (74-106) mg/dL Lactic Acid (0.4-2.0) Calcium 7.9 L (8.4-10.2) mg/dL Total Bilirubin 0.90 (0.2-1.3) mg/dL AST 28 (14-36) U/L ALT 35 (0-35) U/L Alkaline Phosphatase 92 (38-126) U/L NT-Pro-B Natriuret Pep 53030 (<300) pg/mL Serum Total Protein 5.9 L (6.3-8.2) g/dL Albumin 3.1 L (3.5-5.0) g/dL Procalcitonin (0.030-0.080) ng/mL - Progress Progress: improved, pain not gone completely, re-examined Progress Note: 11/28/22 20:44 67-year-old female with multiple medical problems including metastatic lung cancer status post chemo and radiation to the brain, hypertension, COPD, chronic lower extremity swelling, chronic DVT, PE, 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 Patient reports moderate to severe sharp pain with palpation and difficult ambulation because of pain in the muscle. Denies any fall or trauma. No fever or chills reported. She has left lower extremity cellulitis with edema. Warm and tender to touch. Distal neurovascular intact. Obtained ultrasound which showed nonocclusive DVT but good flow per preliminary report which I believe is old. Patient has been without replacement. INR is 1.96. Work-up showed white count of 13, fairly unremarkable chemistries, lactate of 2.0 and procalcitonin 1.1. I believe patient has cellulitis and started on Zosyn and clindamycin. Blood cultures are obtained. I have discussed work-up with Dr. Adams, reviewed history, work-up and current management, agreed with admission. I have discussed the results of work-up with patient and family and plan of admission understand and agree with it. 11/28/22 20:45 Discussed with : Meli Counseled pt/family regarding: lab results, diagnosis, need for follow-up, rad results Medical Desision Making - Independent Historian Additional History obtained from: Spouse - Discussion of managment Care discussed with:: hospitalist (Dr. Adams 2020) Reviewed:: Test results Agreed on:: Treatment plan, place in obs Will see patient: in hospital - Diagnostic Testing Diagnostic test were ordered, analyzed, and reviewed by me: Yes Radiological Interpretation: Reviewed by me - Risk of complications The pt has a high risk of morbidity or mortality based on: Decision regarding hospitilization or escalation of hosp level of care - Departure Departure Disposition: Observation Clinical Impression: Cellulitis of left lower extremity, DVT (deep venous thrombosis), Metastatic cancer Condition: Stable Critical Care Time: No Referrals: RINA SANCHEZ MD [Primary Care Provider] - Follow up/PCP as directed
[2022-11-28 21:09] LABS: Appearance Clear (Clear); Bacteria Many /HPF (None Seen); Bilirubin Negative (Negative); Blood Negative (Negative); Epithelial Cells None Seen /HPF (None Seen); Glucose, Urine Negative (Negative); Hyaline Casts NONE SEEN /LPF (0-2); Ketones Negative (Negative); Leukocyte Esterase Small (Negative); Nitrite Positive (Negative); Ph 7.5 (4.6-8.0); Protein,Urine Dip Trace (Negative); RBC 0-2 /HPF (0-5); Specific Gravity >=1.030 (1.005-1.030); WBC 21-50 /HPF (0-5)
[2022-11-28] MEDS ORDERED: CLINDAMYCIN-D5W 600 MG/50 ML*** 600 MG/50 ML BAG IV ONE (21:14)
[2022-11-28 21:20] LABS: ADD URINE CULTURE? YES (NO)
[2022-11-28] MEDS ORDERED: ANTIVERT 25 MG PO PRN (23:50)
[2022-11-28] MEDS ORDERED: Hydromorphone 1 mg/ml Injection IV PRN (23:56)
[2022-11-29] MEDS: NORCO 5/325 MG PO PRN ×2 (00:13→07:39)
[2022-11-29] MEDS ORDERED: Zofran 4 MG/2 ML VIAL IV PRN (00:57)
[2022-11-29] MEDS ORDERED: Docusate Sodium 100 MG PO PRN (00:57)
[2022-11-29] MEDS ORDERED: TYLENOL 325 MG PO PRN (00:57)
--- NOTE | 2022-11-29 01:09 | PCM.HP ---
History of Present Illness - Chief Complaint Chief Complaint: cellulitis LLE, DVT LLE Date: 11/28/22 History of Present Illness: is a 67 year old female with a history of lung cancer (metastatic to the brain, has been on chemotherapy and radiation therapy) and a chronic history of DVT/PE (on coumadin and with an IVC filter in place) who presents to the hospital with left leg redness and pain. The patient stated that for the past few days, she noted redness and worsening pain on her left leg. She has not reported any abrasion or insect/animal bite in the area, or recent fall with trauma to the area. She also has not had any fevers or chills. She denies any chest pain or dyspnea. In the ED, the patient had an ultrasound which demonstrated a left leg DVT of questionable chronicity, and she was placed on IV antibiotics. - Review of Systems Constitutional: No Symptoms Eyes: No Symptoms Ears, Nose, & Throat: No Symptoms Respiratory: No Symptoms Cardiac: No Symptoms Abdominal/Gastrointestinal: No Symptoms Genitourinary Symptoms: No Symptoms Musculoskeletal: Myalgias Skin: Cellulitis Neurological: No Symptoms Psychological: No Symptoms Endocrine: No Symptoms Hematologic/Lymphatic: No Symptoms Immunological/Allergic: No Symptoms All Other Systems: Reviewed and Negative Medications & Allergies Home Medications: Home Medication List Ferrous Sulfate [Iron Supplement] 65 mg PO DAILY 04/15/12 [History Confirmed 11/28/22] Mecobalamin [B12 Active] 1,000 mcg PO DAILY 04/11/21 [History Confirmed 11/28/22] Omeprazole 40 mg PO BID 04/11/21 [History Confirmed 11/28/22] Warfarin Sodium 3 mg [Coumadin 3 MG] 3 mg PO UD 01/11/22 [History Confirmed 11/28/22] Atorvastatin Calcium 10 mg PO HS 11/28/22 [History Confirmed 11/28/22] Calcium Carbonate [Calcium] 600 mg PO DAILY 11/28/22 [History Confirmed 11/28/22] Folic Acid 20 mg PO BID 11/28/22 [History Confirmed 11/28/22] Meclizine HCl 25 mg [Antivert 25 mg] 25 mg PO TID PRN 11/28/22 [History Confirmed 11/28/22] Warfarin Sodium 2 mg PO UD 11/28/22 [History Confirmed 11/28/22] carvediloL [Carvedilol] 6.25 mg PO BID 11/28/22 [History Confirmed 11/28/22] dexAMETHasone [Dexamethasone] 4 mg PO BID 11/28/22 [History Confirmed 11/28/22] Allergies/Adverse Reactions: Allergies Allergy/AdvReac Type Severity Reaction Status Date / Time No Known Drug Allergies Allergy Verified 01/11/22 12:47 - Past Medical History Past Medical History: Yes Neurological History: Peripheral Neuropathy, Other ENT History: No Pertinent History Cardiac History: No Pertinent History Respiratory History: No Pertinent History, Other Endocrine Medical History: No Pertinent History, Other Musculoskelatal History: Osteoarthritis, Other GI Medical History: No Pertinent History History: No Pertinent History Pyscho-Social History: No Pertinent History Reproductive Disorders: No Pertinent History Comment: SOB AT TIMES, SJOGRENS SYNDROME, TRIGEMINAL NEUROPATHY, MIESHA Syndrome - Female History Are you now?: No - Past Surgical History Past Surgical History: Yes Neuro Surgical History: No Pertinent History Cardiac History: Cardiac Catheterization, Vascular Surgery, Other Respiratory Surgery: Other GI Surgical History: No Pertinent History Genitourinary Surgical Hx: No Pertinent History Musculskeletal Surgical Hx: No Pertinent History Female Surgical History: Hysterectomy, Lumpectomy Other Surgical History: vascular surgery on right hand, mino filter in left groin. lung surgery partial lobe removed right side - Social History Smoking Status: Never smoker Exposure to second hand smoke: No Alcohol: None Drug Use: none Significant Family History: no pertinent family hx - Physical Exam Vital Signs: Vital Signs - 24 hr Temp Pulse Resp BP BP Pulse Ox 11/28/22 23:00 96 11/28/22 22:29 97.1 F 107 H 22 93/58 96 11/28/22 21:00 108/76 11/28/22 20:47 97 11/28/22 20:30 94/62 11/28/22 20:00 98/59 11/28/22 19:30 93/77 11/28/22 19:00 88/63 11/28/22 18:41 82 97/74 97 11/28/22 18:00 106/72 11/28/22 17:43 97/74 11/28/22 17:19 98.1 F 90 18 117/80 98 11/28/22 17:17 88 117/80 98 General Appearance: no apparent distress Neurologic Exam: alert, oriented x 3, cooperative, 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 as tested, normal mood/affect, nml cerebellar function Eye Exam: PERRL/EOMI, eyes nml inspection Ears, Nose, Throat Exam: normal ENT inspection Neck Exam: normal inspection, non-tender, supple, full range of motion Respiratory Exam: normal breath sounds, lungs clear Cardiovascular Exam: regular rate/rhythm, normal heart sounds, edema Gastrointestinal/Abdomen Exam: soft, normal bowel sounds Back Exam: normal range of motion Extremity Exam: normal range of motion, swelling (Left > right, weeping edema on left) Skin Exam: rash Results - Labs Lab/Micro Results: Lab Results-Last 24 Hours 11/28/22 11/28/22 11/28/22 Range/Units 18:10 18:10 18:10 WBC 13.5 H (4.0-10.5) x10^3/uL RBC 4.40 (4.1-5.4) x10^6/uL Hgb 13.2 (12.0-16.0) g/dL Hct 41.4 (35-47) % MCV 94.1 (78-100) fL MCH 30.0 (26-32) pg MCHC 31.9 L (32-36) g/dL RDW 19.5 H (11.5-14.0) % Plt Count 163 (150-450) x10^3/uL MPV 9.6 (7.5-11.0) fL Segmented Neutrophils 93 H (36.0-66.0) % Lymphocytes (Manual) 6 L (24-44) % Eosinophils (Manual) 1 (0.00-3.0) % Platelet Estimate NORMAL (NORMAL) RBC Morphology ABNORMAL Microcytosis 1+ PT 20.3 H (9.4-12.5) SECONDS INR 1.96 (0.8-3.0) Sodium 134 L (137-145) mmol/L Potassium 3.9 (3.5-5.1) mmol/L Chloride 103 (98-107) mmol/L Carbon Dioxide 27 (22-30) mmol/L Anion Gap 8.4 (5-15) MEQ/L BUN 28 H (7-17) mg/dL Creatinine 0.57 (0.52-1.04) mg/dL Estimated GFR > 60.0 ML/MIN Glucose 116 H (74-106) mg/dL Lactic Acid (0.4-2.0) Calcium 7.9 L (8.4-10.2) mg/dL Total Bilirubin 0.90 (0.2-1.3) mg/dL AST 28 (14-36) U/L ALT 35 (0-35) U/L Alkaline Phosphatase 92 (38-126) U/L NT-Pro-B Natriuret Pep 13518 (<300) pg/mL Serum Total Protein 5.9 L (6.3-8.2) g/dL Albumin 3.1 L (3.5-5.0) g/dL Procalcitonin (0.030-0.080) ng/mL Urine Color (Yellow) Urine Appearance (Clear) Urine pH (4.6-8.0) Ur Specific [place] (1.005-1.030) Urine Protein (Negative) Urine Glucose (UA) (Negative) mg/dL Urine Ketones (Negative) Urine Blood (Negative) Urine Nitrite (Negative) Urine Bilirubin (Negative) Urine Urobilinogen (0.2) mg/dL Ur Leukocyte Esterase (Negative) U Hyaline Cast (Auto) (0-2) /LPF Urine Microscopic RBC (0-5) /HPF Urine Microscopic WBC (0-5) /HPF Ur Epithelial Cells (None Seen) /HPF Urine Bacteria (None Seen) /HPF Urine Culture Reflexed (NO) 11/28/22 11/28/22 11/28/22 Range/Units 18:10 18:12 20:45 WBC (4.0-10.5) x10^3/uL RBC (4.1-5.4) x10^6/uL Hgb (12.0-16.0) g/dL Hct (35-47) % MCV (78-100) fL MCH (26-32) pg MCHC (32-36) g/dL RDW (11.5-14.0) % Plt Count (150-450) x10^3/uL MPV (7.5-11.0) fL Segmented Neutrophils (36.0-66.0) % Lymphocytes (Manual) (24-44) % Eosinophils (Manual) (0.00-3.0) % Platelet Estimate (NORMAL) RBC Morphology Microcytosis PT (9.4-12.5) SECONDS INR (0.8-3.0) Sodium (137-145) mmol/L Potassium (3.5-5.1) mmol/L Chloride (98-107) mmol/L Carbon Dioxide (22-30) mmol/L Anion Gap (5-15) MEQ/L BUN (7-17) mg/dL Creatinine (0.52-1.04) mg/dL Estimated GFR ML/MIN Glucose (74-106) mg/dL Lactic Acid 2.0 (0.4-2.0) Calcium (8.4-10.2) mg/dL Total Bilirubin (0.2-1.3) mg/dL AST (14-36) U/L ALT (0-35) U/L Alkaline Phosphatase (38-126) U/L NT-Pro-B Natriuret Pep (<300) pg/mL Serum Total Protein (6.3-8.2) g/dL Albumin (3.5-5.0) g/dL Procalcitonin 0.101 H (0.030-0.080) ng/mL Urine Color Yellow (Yellow) Urine Appearance Clear (Clear) Urine pH 7.5 (4.6-8.0) Ur Specific [place] >=1.030 A (1.005-1.030) Urine Protein Trace A (Negative) Urine Glucose (UA) Negative (Negative) mg/dL Urine Ketones Negative (Negative) Urine Blood Negative (Negative) Urine Nitrite Positive A (Negative) Urine Bilirubin Negative (Negative) Urine Urobilinogen 1.0 A (0.2) mg/dL Ur Leukocyte Esterase Small A (Negative) U Hyaline Cast (Auto) NONE SEEN (0-2) /LPF Urine Microscopic RBC 0-2 (0-5) /HPF Urine Microscopic WBC 21-50 A (0-5) /HPF Ur Epithelial Cells None Seen (None Seen) /HPF Urine Bacteria Many A (None Seen) /HPF Urine Culture Reflexed YES (NO) - Radiology Impressions Radiology Exams & Impressions: Radiology Procedures Category Date Time Status VENOUS UNILAT/LIMITED EXTREMIT [US] Stat Exams 11/28/22 17:49 Taken - Other Procedures and Tests Respiratory Therapy 11/28/22 22:12 Respiratory Therapy Consult ONCE Assessment/Plan (1) Cellulitis of left lower extremity Current Visit: Yes Status: Acute Assessment & Plan: Probably component of acute left leg cellulitis with concomitant thrombophlebitis. IV antibiotics. Will nabor rash borders. Placed on probiotics. Code(s): L03.116 - CELLULITIS OF LEFT LOWER LIMB (2) UTI (urinary tract infection) Current Visit: Yes Status: Acute Assessment & Plan: IV antibiotics. Follow urine culture. Code(s): N39.0 - URINARY TRACT INFECTION, SITE NOT SPECIFIED (3) DVT (deep venous thrombosis) Current Visit: Yes Status: Acute Assessment & Plan: On coumadin with INR minimally below therapeutic range. Check INR daily. Also has IVC filter. May need to contact patient's oncologist, Dr. Clement, in AM to discuss breakthrough thrombosis and candidacy for thrombectomy. Analgesia for pain. Code(s): I82.409 - ACUTE EMBOLISM AND THOMBOS UNSP DEEP VN UNSP LOWER EXTREMITY (4) Metastatic cancer Current Visit: Yes Status: Acute Assessment & Plan: Follows with Onc and Rad Onc. Patient is DNR ([facility]). Code(s): C79.9 - SECONDARY MALIGNANT NEOPLASM OF UNSPECIFIED SITE Telemedicine Encounter - Telemedicine Encounter Telemedicine Encounter: The entirety of this encounter was performed via Telemedicine"
[2022-11-29] MEDS: VANCOMYCIN 1 GRAM/200 ML BAG 1 GM/200 ML PIGGYBACK IV SCH ×2 (02:19→13:07)
[2022-11-29 04:57] LABS: Absolute Neutrophil Ct (ANC) 15.34 x10^3/uL (1.4-6.9); BASOPHIL % 0.5 % (0.0-0.4); Basophil (Absolute #) 0.09 x10^3/uL (0-0.4); Eosinophil % 0.1 % (0.00-5.0); Eosinophil (Absolute #) 0.01 x10^3/uL (0-0.5); Hematocrit 44.2 % (35-47); Hemoglobin 14.2 g/dL (12.0-16.0); IMMATURE GRAN # 0.21 x10^3u/L (0.00-0.03); IMMATURE GRAN % 1.3 % (0.00-0.4); Lymphocyte (Absolute #) 0.54 x10^3/uL (1.0-4.6); Lymphocytes % 3.2 % (24.0-44.0); Mean Cell Volume 94.4 fL (78-100); Mean Corpuscular Hemoglobin 30.3 pg (26-32); Mean Corpuscular Hgb Concent. 32.1 g/dL (32-36); Mean Platelet Volume 9.8 fL (7.5-11.0); Monocyte (Absolute #) 0.55 x10^3/uL (0.0-1.3); Monocytes % 3.3 % (0.0-12.0); Neutrophil % 91.6 % (36.0-66.0); Platelet Count 132 x10^3/uL (150-450); Red Blood Count 4.68 x10^6/uL (4.1-5.4); Red Cell Distribution Width 20.2 % (11.5-14.0); White Blood Count 16.7 x10^3/uL (4.0-10.5)
[2022-11-29 05:06] LABS: ANION GAP 9.5 MEQ/L (5-15); BLOOD UREA NITROGEN 29 mg/dL (7-17); CHLORIDE 102 mmol/L (98-107); Calcium 7.6 mg/dL (8.4-10.2); Carbon Dioxide 27 mmol/L (22-30); Creatinine 1 0.61 mg/dL (0.52-1.04); EST GLOMERULAR FILTRATION RATE > 60.0 ML/MIN; Glucose 79 mg/dL (74-106); Potassium 4.1 mmol/L (3.5-5.1); SODIUM 134 mmol/L (137-145)
[2022-11-29 05:08] LABS: INR 2.37 (0.8-3.0); PROTIME 24.2 SECONDS (9.4-12.5)
[2022-11-29] MEDS ORDERED: PIPERACILLIN/TAZOBACTAM IV ONE (06:15)
[2022-11-29] MEDS ORDERED: Sodium Chloride 100ML MINI-BAG PLUS 100 ML IV ONE (06:15)
[2022-11-29] MEDS: PIPERACILLIN/TAZOBACTAM 3.375 GM in Sodium Chloride 100ML MINI-BAG PLUS 100 ML IV SCH ×3 (06:25→17:20)
[2022-11-29 07:10] LABS: Slide Review 1 YES
[2022-11-29] MEDS ORDERED: MEDICATION INTERVENTION MC SCH (07:15)
[2022-11-29] MEDS ORDERED: PHARMACY DOSING REQUEST MC ONE (07:43)
--- NOTE | 2022-11-29 08:46 | XRAY ---
Indication: Pain and swelling. Current blood thinner therapy with IVC filter placement. Two-dimensional sonogram and color Doppler imaging of the major venous vessels of the left leg performed. Comparison: None Scattered nonoccluding thrombi seen in the deep femoral, common femoral, femoral, and posterior tibial veins. No thrombus in the remaining popliteal and greater saphenous veins. Impression: Nonoccluding DVT throughout left leg as detailed. Comment: Preliminary report was given.
[2022-11-29] MEDS: Coreg PO SCH ×2 (09:42→21:23)
[2022-11-29] MEDS: Decadron 4 MG PO SCH ×2 (09:42→21:20)
[2022-11-29] MEDS: Protonix 40MG Tablet PO SCH ×2 (09:43→21:21)
[2022-11-29] MEDS ORDERED: Calcium 500MG W/Vit D Tablet PO SCH (10:00)
[2022-11-29] MEDS ORDERED: NON-FORMULARY ITEM (Omeprazole [Omeprazole] 40 MG Capsule.Dr) PO SCH (10:00)
[2022-11-29] MEDS ORDERED: FEOSOL 325 MG PO SCH (10:00)
[2022-11-29] MEDS ORDERED: NON-FORMULARY ITEM (Calcium Carbonate [Calcium] 600 MG Tablet) PO SCH (10:00)
[2022-11-29] MEDS ORDERED: NON-FORMULARY ITEM (Mecobalamin [B12 Active] 1,000 MCG Tab.Chew) PO SCH (10:00)
[2022-11-29] MEDS ORDERED: Vitamin B-12 500 MCG PO SCH (10:00)
[2022-11-29] MEDS ORDERED: FOLIC ACID 20 MG PO SCH (10:00)
[2022-11-29] MEDS ORDERED: Acidophilus TABLET PO SCH (10:00)
--- NOTE | 2022-11-29 11:45 | PCM.NOTE ---
Date and Time: 11/29/22 1140 Subjective Assessment: is a 67 year old female with a history of lung cancer (metastatic to the brain, has been on chemotherapy and radiation therapy) and a chronic history of DVT/PE (on coumadin and with an IVC filter in place) who presented to ED 11/28/22 with complaints of left leg redness and pain admitted for DVT/Cellulitis. Currently being treated with vancomycin/zosyn, and coumadin. The patient stated that for the past few days, she noted redness and worsening pain on her left leg. She has not reported any abrasion or insect/animal bite in the area, or recent fall with trauma to the area. In the ED, the patient had an ultrasound which demonstrated a left leg DVT of questionable chronicity. U/A suspicious for infection. INR initially minimally below therapeutic range, but now within parameters. Patient states overall improvement overnight. Denies fever, cough, sob, cp, abdominal pain, CROSS, dizziness, N/V/D. Plan is to continue IV abx with possible discharge tomorrow. - Review of Systems Constitutional: No Symptoms Eyes: No Symptoms Ears, Nose, & Throat: No Symptoms Respiratory: Cough, Short Of Breath Cardiac: Edema (BLE edema L>R 2/3+ pitting) Abdominal/Gastrointestinal: No Symptoms Genitourinary Symptoms: No Symptoms Musculoskeletal: Joint Pain Skin: Cellulitis Neurological: No Symptoms Psychological: No Symptoms Objective Exam General Appearance: no apparent distress Neurologic Exam: alert, oriented x 3, cooperative Skin Exam: petechiae, pale, other (BLE edema, L>R 3+/2+ slow cap refill, faint dp, cellulitis with boarders marked Right chest port) Eye Exam: PERRL Ears, Nose, Throat Exam: normal ENT inspection Neck Exam: normal inspection Respiratory Exam: diminished breath sounds Cardiovascular Exam: tachycardia Gastrointestinal/Abdomen Exam: soft, normal bowel sounds Extremity Exam: other (see skin) Back Exam: normal inspection Pelvic Exam: deferred Rectal Exam: deferred OBJECTIVE DATA Vital Signs: Vital Signs - 24 hr Temp Pulse Resp BP BP Pulse Ox 11/29/22 07:53 95 11/29/22 07:21 97.7 F 106 H 17 88/51 11/29/22 03:50 97.4 F 110 H 30 H 83/57 92 L 09/08/23 01:22 96 11/28/22 23:00 96 11/28/22 22:29 97.1 F 107 H 22 93/58 96 11/28/22 21:00 108/76 11/28/22 20:47 97 11/28/22 20:30 94/62 11/28/22 20:00 98/59 11/28/22 19:30 93/77 11/28/22 19:00 88/63 11/28/22 18:41 82 97/74 97 11/28/22 18:00 106/72 11/28/22 17:43 97/74 11/28/22 17:19 98.1 F 90 18 117/80 98 11/28/22 17:17 88 117/80 98 Pain Assessment - Last Documented Pain Intensity 0 Pain Scale Used 0-10 Pain Scale Intake and Output: Intake & Output 11/26/22 11/27/22 11/28/22 11/29/22 11:59 11:59 11:59 11:59 Intake Total 560 Balance 560 Weight 62.5 kg Lab Results: Lab Results-Last 24 Hours 11/28/22 11/28/22 11/28/22 Range/Units 18:10 18:10 18:10 WBC 13.5 H (4.0-10.5) x10^3/uL RBC 4.40 (4.1-5.4) x10^6/uL Hgb 13.2 (12.0-16.0) g/dL Hct 41.4 (35-47) % MCV 94.1 (78-100) fL MCH 30.0 (26-32) pg MCHC 31.9 L (32-36) g/dL RDW 19.5 H (11.5-14.0) % Plt Count 163 (150-450) x10^3/uL MPV 9.6 (7.5-11.0) fL Gran % (36.0-66.0) % Immature Gran % (Auto) (0.00-0.4) % Nucleat RBC Rel Count (0.00-0.1) % Eos # (Auto) (0-0.5) x10^3/uL Immature Gran # (Auto) (0.00-0.03) x10^3u/L Absolute Lymphs (auto) (1.0-4.6) x10^3/uL Absolute Monos (auto) (0.0-1.3) x10^3/uL Absolute Nucleated RBC (0.00-0.01) x10^3u/L Lymphocytes % (24.0-44.0) % Monocytes % (0.0-12.0) % Eosinophils % (0.00-5.0) % Basophils % (0.0-0.4) % Absolute Granulocytes (1.4-6.9) x10^3/uL Segmented Neutrophils 93 H (36.0-66.0) % Lymphocytes (Manual) 6 L (24-44) % Eosinophils (Manual) 1 (0.00-3.0) % Basophils # (0-0.4) x10^3/uL Platelet Estimate NORMAL (NORMAL) RBC Morphology ABNORMAL Microcytosis 1+ PT 20.3 H (9.4-12.5) SECONDS INR 1.96 (0.8-3.0) Sodium 134 L (137-145) mmol/L Potassium 3.9 (3.5-5.1) mmol/L Chloride 103 (98-107) mmol/L Carbon Dioxide 27 (22-30) mmol/L Anion Gap 8.4 (5-15) MEQ/L BUN 28 H (7-17) mg/dL Creatinine 0.57 (0.52-1.04) mg/dL Estimated GFR > 60.0 ML/MIN Glucose 116 H (74-106) mg/dL Lactic Acid (0.4-2.0) Calcium 7.9 L (8.4-10.2) mg/dL Total Bilirubin 0.90 (0.2-1.3) mg/dL AST 28 (14-36) U/L ALT 35 (0-35) U/L Alkaline Phosphatase 92 (38-126) U/L NT-Pro-B Natriuret Pep 68611 (<300) pg/mL Serum Total Protein 5.9 L (6.3-8.2) g/dL Albumin 3.1 L (3.5-5.0) g/dL Procalcitonin (0.030-0.080) ng/mL Urine Color (Yellow) Urine Appearance (Clear) Urine pH (4.6-8.0) Ur Specific Howell (1.005-1.030) Urine Protein (Negative) Urine Glucose (UA) (Negative) mg/dL Urine Ketones (Negative) Urine Blood (Negative) Urine Nitrite (Negative) Urine Bilirubin (Negative) Urine Urobilinogen (0.2) mg/dL Ur Leukocyte Esterase (Negative) U Hyaline Cast (Auto) (0-2) /LPF Urine Microscopic RBC (0-5) /HPF Urine Microscopic WBC (0-5) /HPF Ur Epithelial Cells (None Seen) /HPF Urine Bacteria (None Seen) /HPF Urine Culture Reflexed (NO) Slides for Path Review 11/28/22 11/28/22 11/28/22 Range/Units 18:10 18:12 20:45 WBC (4.0-10.5) x10^3/uL RBC (4.1-5.4) x10^6/uL Hgb (12.0-16.0) g/dL Hct (35-47) % MCV (78-100) fL MCH (26-32) pg MCHC (32-36) g/dL RDW (11.5-14.0) % Plt Count (150-450) x10^3/uL MPV (7.5-11.0) fL Gran % (36.0-66.0) % Immature Gran % (Auto) (0.00-0.4) % Nucleat RBC Rel Count (0.00-0.1) % Eos # (Auto) (0-0.5) x10^3/uL Immature Gran # (Auto) (0.00-0.03) x10^3u/L Absolute Lymphs (auto) (1.0-4.6) x10^3/uL Absolute Monos (auto) (0.0-1.3) x10^3/uL Absolute Nucleated RBC (0.00-0.01) x10^3u/L Lymphocytes % (24.0-44.0) % Monocytes % (0.0-12.0) % Eosinophils % (0.00-5.0) % Basophils % (0.0-0.4) % Absolute Granulocytes (1.4-6.9) x10^3/uL Segmented Neutrophils (36.0-66.0) % Lymphocytes (Manual) (24-44) % Eosinophils (Manual) (0.00-3.0) % Basophils # (0-0.4) x10^3/uL Platelet Estimate (NORMAL) RBC Morphology Microcytosis PT (9.4-12.5) SECONDS INR (0.8-3.0) Sodium (137-145) mmol/L Potassium (3.5-5.1) mmol/L Chloride (98-107) mmol/L Carbon Dioxide (22-30) mmol/L Anion Gap (5-15) MEQ/L BUN (7-17) mg/dL Creatinine (0.52-1.04) mg/dL Estimated GFR ML/MIN Glucose (74-106) mg/dL Lactic Acid 2.0 (0.4-2.0) Calcium (8.4-10.2) mg/dL Total Bilirubin (0.2-1.3) mg/dL AST (14-36) U/L ALT (0-35) U/L Alkaline Phosphatase (38-126) U/L NT-Pro-B Natriuret Pep (<300) pg/mL Serum Total Protein (6.3-8.2) g/dL Albumin (3.5-5.0) g/dL Procalcitonin 0.101 H (0.030-0.080) ng/mL Urine Color Yellow (Yellow) Urine Appearance Clear (Clear) Urine pH 7.5 (4.6-8.0) Ur Specific Howell >=1.030 A (1.005-1.030) Urine Protein Trace A (Negative) Urine Glucose (UA) Negative (Negative) mg/dL Urine Ketones Negative (Negative) Urine Blood Negative (Negative) Urine Nitrite Positive A (Negative) Urine Bilirubin Negative (Negative) Urine Urobilinogen 1.0 A (0.2) mg/dL Ur Leukocyte Esterase Small A (Negative) U Hyaline Cast (Auto) NONE SEEN (0-2) /LPF Urine Microscopic RBC 0-2 (0-5) /HPF Urine Microscopic WBC 21-50 A (0-5) /HPF Ur Epithelial Cells None Seen (None Seen) /HPF Urine Bacteria Many A (None Seen) /HPF Urine Culture Reflexed YES (NO) Slides for Path Review 11/29/22 11/29/22 11/29/22 Range/Units 04:44 04:44 04:44 WBC 16.7 H (4.0-10.5) x10^3/uL RBC 4.68 (4.1-5.4) x10^6/uL Hgb 14.2 (12.0-16.0) g/dL Hct 44.2 (35-47) % MCV 94.4 (78-100) fL MCH 30.3 (26-32) pg MCHC 32.1 (32-36) g/dL RDW 20.2 H (11.5-14.0) % Plt Count 132 L (150-450) x10^3/uL MPV 9.8 (7.5-11.0) fL Gran % 91.6 H (36.0-66.0) % Immature Gran % (Auto) 1.3 H (0.00-0.4) % Nucleat RBC Rel Count 0.0 (0.00-0.1) % Eos # (Auto) 0.01 (0-0.5) x10^3/uL Immature Gran # (Auto) 0.21 H (0.00-0.03) x10^3u/L Absolute Lymphs (auto) 0.54 L (1.0-4.6) x10^3/uL Absolute Monos (auto) 0.55 (0.0-1.3) x10^3/uL Absolute Nucleated RBC 0.00 (0.00-0.01) x10^3u/L Lymphocytes % 3.2 L (24.0-44.0) % Monocytes % 3.3 (0.0-12.0) % Eosinophils % 0.1 (0.00-5.0) % Basophils % 0.5 (0.0-0.4) % Absolute Granulocytes 15.34 H (1.4-6.9) x10^3/uL Segmented Neutrophils (36.0-66.0) % Lymphocytes (Manual) (24-44) % Eosinophils (Manual) (0.00-3.0) % Basophils # 0.09 (0-0.4) x10^3/uL Platelet Estimate (NORMAL) RBC Morphology Microcytosis PT 24.2 H (9.4-12.5) SECONDS INR 2.37 (0.8-3.0) Sodium 134 L (137-145) mmol/L Potassium 4.1 (3.5-5.1) mmol/L Chloride 102 (98-107) mmol/L Carbon Dioxide 27 (22-30) mmol/L Anion Gap 9.5 (5-15) MEQ/L BUN 29 H (7-17) mg/dL Creatinine 0.61 (0.52-1.04) mg/dL Estimated GFR > 60.0 ML/MIN Glucose 79 (74-106) mg/dL Lactic Acid (0.4-2.0) Calcium 7.6 L (8.4-10.2) mg/dL Total Bilirubin (0.2-1.3) mg/dL AST (14-36) U/L ALT (0-35) U/L Alkaline Phosphatase (38-126) U/L NT-Pro-B Natriuret Pep (<300) pg/mL Serum Total Protein (6.3-8.2) g/dL Albumin (3.5-5.0) g/dL Procalcitonin (0.030-0.080) ng/mL Urine Color (Yellow) Urine Appearance (Clear) Urine pH (4.6-8.0) Ur Specific Howell (1.005-1.030) Urine Protein (Negative) Urine Glucose (UA) (Negative) mg/dL Urine Ketones (Negative) Urine Blood (Negative) Urine Nitrite (Negative) Urine Bilirubin (Negative) Urine Urobilinogen (0.2) mg/dL Ur Leukocyte Esterase (Negative) U Hyaline Cast (Auto) (0-2) /LPF Urine Microscopic RBC (0-5) /HPF Urine Microscopic WBC (0-5) /HPF Ur Epithelial Cells (None Seen) /HPF Urine Bacteria (None Seen) /HPF Urine Culture Reflexed (NO) Slides for Path Review YES 11/29/22 Range/Units 10:24 WBC (4.0-10.5) x10^3/uL RBC (4.1-5.4) x10^6/uL Hgb (12.0-16.0) g/dL Hct (35-47) % MCV (78-100) fL MCH (26-32) pg MCHC (32-36) g/dL RDW (11.5-14.0) % Plt Count (150-450) x10^3/uL MPV (7.5-11.0) fL Gran % (36.0-66.0) % Immature Gran % (Auto) (0.00-0.4) % Nucleat RBC Rel Count (0.00-0.1) % Eos # (Auto) (0-0.5) x10^3/uL Immature Gran # (Auto) (0.00-0.03) x10^3u/L Absolute Lymphs (auto) (1.0-4.6) x10^3/uL Absolute Monos (auto) (0.0-1.3) x10^3/uL Absolute Nucleated RBC (0.00-0.01) x10^3u/L Lymphocytes % (24.0-44.0) % Monocytes % (0.0-12.0) % Eosinophils % (0.00-5.0) % Basophils % (0.0-0.4) % Absolute Granulocytes (1.4-6.9) x10^3/uL Segmented Neutrophils (36.0-66.0) % Lymphocytes (Manual) (24-44) % Eosinophils (Manual) (0.00-3.0) % Basophils # (0-0.4) x10^3/uL Platelet Estimate (NORMAL) RBC Morphology Microcytosis PT (9.4-12.5) SECONDS INR (0.8-3.0) Sodium (137-145) mmol/L Potassium (3.5-5.1) mmol/L Chloride (98-107) mmol/L Carbon Dioxide (22-30) mmol/L Anion Gap (5-15) MEQ/L BUN (7-17) mg/dL Creatinine (0.52-1.04) mg/dL Estimated GFR ML/MIN Glucose (74-106) mg/dL Lactic Acid 4.3 H (0.4-2.0) Calcium (8.4-10.2) mg/dL Total Bilirubin (0.2-1.3) mg/dL AST (14-36) U/L ALT (0-35) U/L Alkaline Phosphatase (38-126) U/L NT-Pro-B Natriuret Pep (<300) pg/mL Serum Total Protein (6.3-8.2) g/dL Albumin (3.5-5.0) g/dL Procalcitonin (0.030-0.080) ng/mL Urine Color (Yellow) Urine Appearance (Clear) Urine pH (4.6-8.0) Ur Specific Howell (1.005-1.030) Urine Protein (Negative) Urine Glucose (UA) (Negative) mg/dL Urine Ketones (Negative) Urine Blood (Negative) Urine Nitrite (Negative) Urine Bilirubin (Negative) Urine Urobilinogen (0.2) mg/dL Ur Leukocyte Esterase (Negative) U Hyaline Cast (Auto) (0-2) /LPF Urine Microscopic RBC (0-5) /HPF Urine Microscopic WBC (0-5) /HPF Ur Epithelial Cells (None Seen) /HPF Urine Bacteria (None Seen) /HPF Urine Culture Reflexed (NO) Slides for Path Review Radiology Exams: Radiology Procedures Category Date Time Status VENOUS UNILAT/LIMITED EXTREMIT [US] Stat Exams 11/28/22 17:49 Completed Multi-Disciplinary Progress Notes: Multi-Disciplinary Progress Notes 11/29/22 10:08 Case Management Note by Mahnaz Mar PATENT HAS [employer] [facility]. THEY WILL NEED NOTIFIED AT TIME OF DC AT [phone]. THEY WILL NEED FAXED THE DC INSTRUCTIONS, DC MED LIST AND DC SUMMARY ( IF AVAILABLE) TO [phone] Initialized on 11/29/22 10:08 - END OF NOTE 11/29/22 07:14 Pharmacy Note by Erasto Marsh Pharmacokinetic dosing service Date: 11/29/2022 Time: 714 Objective: Patient: ANNETTE MORALES Floor: 112 Age: 67 yo Serum creatinine: 0.61 mg/dL Height: 66 Inches Weight (kg): 62.5 Diagnosis: CELLULITIS Relevant medical/social history: PREVIOUS DVT Cultures and sensitivities: URINE PENDING, BLOOD PENDING Other labs: PROCALCITONIN 0.101, WBC = 16.7 Assessment: IBW (kg): 59.30 Dosing wt(kg): 62.5 Estimated Creatinine clearance (ml/min): 83.8 CRCL method: Cockcroft and Gault using ibw(default). Drug selected: Vancomycin Loading dose (mg): 1000 MG Vd (liters): 43.8 (factor used: 0.7 L/kg) Silver (hr-1): 0.074 Half life (hrs): 9.37 Recommended dose: 1000 mg Interval: 12 hrs Infusion time (hrs): 1.5 Predicted peak (mcg/mL): 36.7 Predicted trough (mcg/mL): 16.87 Total body weight is being used for vancomycin dosing. Renal function is stable [ XXX ] /unstable [ ] Recommendations: Give Vancomycin 1000 mg q 12 hrs with an expected Cpeak of 36.7 mcg/ml and an expected Ctrough of 16.87 mcg/ml Renal dosing of other antibiotics (review renal dosing of other medications and list guidelines here): ZOSYN 3.375 GM Thank you for the consult, will continue to follow. Signature: ERASTO MARSH Initialized on 11/29/22 07:14 - END OF NOTE Assessment/Plan (1) UTI (urinary tract infection) Current Visit: Yes Status: Acute Assessment & Plan: -IV antibiotics. Follow urine culture. Code(s): N39.0 - URINARY TRACT INFECTION, SITE NOT SPECIFIED (2) Cellulitis of left lower extremity Current Visit: Yes Status: Acute Assessment & Plan: -Bcult pending -Continue vanc/zosyn -Send wound cult if any wounds/ purulent discharge -elevate legs Code(s): L03.116 - CELLULITIS OF LEFT LOWER LIMB (3) DVT (deep venous thrombosis) Current Visit: Yes Status: Acute Assessment & Plan: -May be chronic, on coumadin with IVC filter, INR therapeutic today Code(s): I82.409 - ACUTE EMBOLISM AND THOMBOS UNSP DEEP VN UNSP LOWER EXTREMITY (4) Metastatic cancer Current Visit: Yes Status: Acute Assessment & Plan: Follows with Onc and Rad Onc. Patient is DNR (SCO). VTE: Coumadin PPI: protonix Surrogate decision maker: none provided Dispo: Home in 1-2 days Code(s): C79.9 - SECONDARY MALIGNANT NEOPLASM OF UNSPECIFIED SITE
[2022-11-29] MEDS: NOREPINEPHRINE 8 MG/250 ML-D5W 8 MG/250 ML PLAST..BAG IV PRN (14:29)
[2022-11-29] MEDS ORDERED: Coumadin 3 MG PO SCH (18:00)
[2022-11-29] MEDS ORDERED: NON-FORMULARY ITEM (Atorvastatin Calcium [Atorvastatin Calcium] 10 MG Tablet) PO SCH (22:00)
[2022-11-29] MEDS ORDERED: Zocor 10MG PO SCH (22:00)
[2022-11-30] MEDS: PIPERACILLIN/TAZOBACTAM 3.375 GM in Sodium Chloride 100ML MINI-BAG PLUS 100 ML IV SCH ×2 (00:05→06:23)
[2022-11-30] MEDS: VANCOMYCIN 1 GRAM/200 ML BAG 1 GM/200 ML PIGGYBACK IV SCH (01:22)
[2022-11-30] MEDS: NOREPINEPHRINE 8 MG/250 ML-D5W 8 MG/250 ML PLAST..BAG IV PRN (02:51)
[2022-11-30 04:54] VITALS: O2SAT 97
[2022-11-30 05:07] VITALS: TEMP 96.8
[2022-11-30 05:36] LABS: Hematocrit 41.3 % (35-47); Hemoglobin 13.2 g/dL (12.0-16.0); Mean Cell Volume 94.5 fL (78-100); Mean Corpuscular Hemoglobin 30.2 pg (26-32); Mean Platelet Volume 9.9 fL (7.5-11.0); Platelet Count 144 x10^3/uL (150-450); Red Blood Count 4.37 x10^6/uL (4.1-5.4); Red Cell Distribution Width 19.9 % (11.5-14.0); White Blood Count 24.5 x10^3/uL (4.0-10.5)
[2022-11-30 05:51] LABS: INR 4.06 (0.8-3.0); PROTIME 39.9 SECONDS (9.4-12.5)
[2022-11-30 05:52] LABS: ALBUMIN 2.8 g/dL (3.5-5.0); ALKALINE PHOSPHATASE 97 U/L (38-126); ANION GAP 11.9 MEQ/L (5-15); BLOOD UREA NITROGEN 30 mg/dL (7-17); CHLORIDE 99 mmol/L (98-107); Calcium 7.3 mg/dL (8.4-10.2); Carbon Dioxide 24 mmol/L (22-30); Creatinine 1 0.94 mg/dL (0.52-1.04); EST GLOMERULAR FILTRATION RATE > 60.0 ML/MIN; Glucose 116 mg/dL (74-106); Potassium 4.3 mmol/L (3.5-5.1); SGOT/AST 54 U/L (14-36); SGPT/ALT 85 U/L (0-35); SODIUM 131 mmol/L (137-145); Total Protein 5.7 g/dL (6.3-8.2)
[2022-11-30 07:32] LABS: BAND 7 % (0.0-2.0); Lymphocytes 4 % (24-44); Monocyte 1 % (0.0-12.0); Neutrophils 88 % (36.0-66.0); Total Cells Counted 100
[2022-11-30 07:34] LABS: Platelet Estimate NORMAL (NORMAL)
--- NOTE | 2022-11-30 08:48 | PCM.DS ---
Discharge Summary Date of Admission: 11/28/22 22:07 Date of Discharge: 11/30/22 Admitting Physician: RONAN MAYES MD Primary Care Provider: RINA SANCHEZ Allergies Allergies No Known Drug Allergies Allergy (Verified 01/11/22 12:47) Hospital Summary - Hospital Course Hospital Course: is a 67 year old female with a history of lung cancer (metastatic to the brain, has been on chemotherapy and radiation therapy) and a chronic history of DVT/PE (on coumadin and with an IVC filter in place) who presented to ED 11/28/22 with complaints of left leg redness and pain admitted for Sepsis/Bacteremia/DVT/Cellulitis/UTI. Currently being treated with vancomycin/zosyn, and coumadin. The patient initially came in with c/o redness and worsening pain on her left leg. She has not reported any abrasion or insect/animal bite in the area, or recent fall with trauma to the area. In the ED, the patient had an ultrasound which demonstrated a left leg DVT of questionable chronicity. U/A suspicious for infection. INR initially minimally below therapeutic range, but now within parameters. During hospital course, WBC continued to increase now at 24.5. Blood cultures are positive at [facility] for gram + cocci in chains. Patient developed hypotension and was started on Levophed drip. Patient developed a bullae to the medial LLE with surrounding induration and erythema. INR supratherapeutic, coumadin on hold, pharmacy dosing. Plan is for transfer to a higher level of care at [facility]. -New Diagnoses: sepsis/bacteremia/UTI/Cellulitis -New Medications: vanc/zosyn -Transfer to higher level of care -Results pending: final blood and urine cultures -Latest Assessment and Plan: Sepsis criteria identified Contraindications to fluid resuscitation: hypervolemia Blood cultures x2 ordered, [facility] report called to RN with Gram + cocci Antibiotics started Vanc/Zosyn Lactate drawn initially at 2.0 Repeat lactate at 4.3 trend until WNL Will admin vasopressors if hypotensive after IV admin (MAP <65 or SBP <90). Levophed initiated 11/30 Repeat WBC increased now at 24.5 Lactic downtrending 2.6<4.3>2.0 Procal 3.4>0.1 (1) UTI (urinary tract infection) Current Visit: Yes Status: Acute Assessment & Plan: -IV antibiotics. Follow urine culture. Code(s): N39.0 - URINARY TRACT INFECTION, SITE NOT SPECIFIED (2) Cellulitis of left lower extremity Current Visit: Yes Status: Acute Assessment & Plan: -Bcult pending -Continue vanc/zosyn -Send wound cult if any wounds/ purulent discharge -elevate legs Code(s): L03.116 - CELLULITIS OF LEFT LOWER LIMB (3) DVT (deep venous thrombosis) Current Visit: Yes Status: Acute Assessment & Plan: -May be chronic, on coumadin with IVC filter, INR therapeutic today Code(s): I82.409 - ACUTE EMBOLISM AND THOMBOS UNSP DEEP VN UNSP LOWER EXTREMITY (4) Metastatic cancer Current Visit: Yes Status: Acute Assessment & Plan: Follows with Onc and Rad Onc. Patient is DNR (SCO). Sepsis/Bacteremia: I spent 45 minutes [id number] with the patient on the day of discharge performing discharge exam, discussing hospital stay and discharge instructions with patient & caregivers, preparation of discharge records, prescriptions & referral forms and addressing any questions/concerns the patient had as documented above. - Vitals & Intake/Output Vital Signs: Vital Signs Temperature 96.8 F 11/30/22 05:00 Pulse Rate 104 H 11/30/22 08:00 Respiratory Rate 13 11/30/22 08:00 Blood Pressure 116/83 11/30/22 08:00 O2 Sat by Pulse Oximetry 97 11/30/22 05:00 Intake & Output: Intake & Output 11/27/22 11/28/22 11/29/22 11/30/22 11:59 11:59 11:59 11:59 Intake Total 560 150 Output Total 1100 Balance 560 -950 Weight 62.5 kg - Lab Result Diagrams: 11/30/22 05:14 11/30/22 05:14 Lab Results-Last 24 Hrs: Lab Results-Last 24 Hours 11/29/22 11/29/22 11/30/22 Range/Units 04:44 10:24 05:14 WBC (4.0-10.5) x10^3/uL RBC (4.1-5.4) x10^6/uL Hgb (12.0-16.0) g/dL Hct (35-47) % MCV (78-100) fL MCH (26-32) pg MCHC (32-36) g/dL RDW (11.5-14.0) % Plt Count (150-450) x10^3/uL MPV (7.5-11.0) fL Absolute Nucleated RBC (0.00-0.01) x10^3u/L Segmented Neutrophils (36.0-66.0) % Band Neutrophils (0.0-2.0) % Lymphocytes (Manual) (24-44) % Monocytes (Manual) (0.0-12.0) % Platelet Estimate (NORMAL) RBC Morphology PT 39.9 H (9.4-12.5) SECONDS INR 4.06 H D (0.8-3.0) Sodium (137-145) mmol/L Potassium (3.5-5.1) mmol/L Chloride (98-107) mmol/L Carbon Dioxide (22-30) mmol/L Anion Gap (5-15) MEQ/L BUN (7-17) mg/dL Creatinine (0.52-1.04) mg/dL Estimated GFR ML/MIN Glucose (74-106) mg/dL Lactic Acid 4.3 H (0.4-2.0) Calcium (8.4-10.2) mg/dL Total Bilirubin (0.2-1.3) mg/dL AST (14-36) U/L ALT (0-35) U/L Alkaline Phosphatase (38-126) U/L Serum Total Protein (6.3-8.2) g/dL Albumin (3.5-5.0) g/dL Procalcitonin 3.400 H* (0.030-0.080) ng/mL 11/30/22 11/30/22 11/30/22 Range/Units 05:14 05:14 05:35 WBC 24.5 H (4.0-10.5) x10^3/uL RBC 4.37 (4.1-5.4) x10^6/uL Hgb 13.2 (12.0-16.0) g/dL Hct 41.3 (35-47) % MCV 94.5 (78-100) fL MCH 30.2 (26-32) pg MCHC 32.0 (32-36) g/dL RDW 19.9 H (11.5-14.0) % Plt Count 144 L (150-450) x10^3/uL MPV 9.9 (7.5-11.0) fL Absolute Nucleated RBC 0.00 (0.00-0.01) x10^3u/L Segmented Neutrophils 88 H (36.0-66.0) % Band Neutrophils 7 H (0.0-2.0) % Lymphocytes (Manual) 4 L (24-44) % Monocytes (Manual) 1 (0.0-12.0) % Platelet Estimate NORMAL (NORMAL) RBC Morphology NORMAL PT (9.4-12.5) SECONDS INR (0.8-3.0) Sodium 131 L (137-145) mmol/L Potassium 4.3 (3.5-5.1) mmol/L Chloride 99 (98-107) mmol/L Carbon Dioxide 24 (22-30) mmol/L Anion Gap 11.9 (5-15) MEQ/L BUN 30 H (7-17) mg/dL Creatinine 0.94 (0.52-1.04) mg/dL Estimated GFR > 60.0 ML/MIN Glucose 116 H (74-106) mg/dL Lactic Acid 2.6 H (0.4-2.0) Calcium 7.3 L (8.4-10.2) mg/dL Total Bilirubin 1.00 (0.2-1.3) mg/dL AST 54 H (14-36) U/L ALT 85 H (0-35) U/L Alkaline Phosphatase 97 (38-126) U/L Serum Total Protein 5.7 L (6.3-8.2) g/dL Albumin 2.8 L (3.5-5.0) g/dL Procalcitonin (0.030-0.080) ng/mL Micro Results-Entire Visit: Microbiology 11/28/22 18:20 Blood Culture Gram Stain - Final Blood 11/28/22 18:10 Blood Culture Gram Stain - Final Blood - Radiology Exams Ordered Rad Exams-Entire Visit: Radiology Procedures Category Date Time Status VENOUS UNILAT/LIMITED EXTREMIT [US] Stat Exams 11/28/22 17:49 Completed - Procedures and Test Procedures and Tests throughout Hospitalization: Therapy Orders & Screens 11/28/22 22:12 Respiratory Therapy Consult ONCE Comment: Reason For Exam: 11/28/22 23:03 OT Screen per Nursing Assess ONCE Comment: Protocol Order Physician Instructions: Greater than 3 points order OT Admission Screening Reason For Exam: Triggered on Admission Diagnosis: cellulitis LLE, DVT LLE Open Wound/Cellutlitis/Pressure Ulcers: Yes Acute Fx/ORIF/Change in wt bearing status: No Severe MUSCULOSKELETAL pain: No ADL Dysfunction: No Acute CVA w/Hemiparesis/Hemiplegia: No Decreased Functional Mobility/Strength: No Sprain/Strain: No Acute Post-op Mobility Dysfunction: No Total Points: 5 PT Screen per Nursing Assess ONCE Comment: Protocol Order Physician Instructions: Greater than 3 points order PT Admission Screenin Reason For Exam: Triggered on Admission Diagnosis: cellulitis LLE, DVT LLE Open Wound/Cellutlitis/Pressure Ulcers: Yes Acute Fx/ORIF/Change in wt bearing status: No Severe MUSCULOSKELETAL pain: No ADL Dysfunction: No Acute CVA w/Hemiparesis/Hemiplegia: No Decreased Functional Mobility/Strength: No Sprain/Strain: No Acute Post-op Mobility Dysfunction: No Total Points: 5 Discharge Exam General Appearance: no apparent distress Neurologic Exam: alert, oriented x 3, cooperative Eye Exam: PERRL Ears, Nose, Throat Exam: normal ENT inspection Respiratory Exam: diminished breath sounds Cardiovascular Exam: regular rate/rhythm, normal heart sounds Gastrointestinal/Abdomen Exam: soft, normal bowel sounds Pelvic Exam: deferred Rectal Exam: deferred Extremity Exam: other (BLE edema, L>R, superimposed cellulitis to LLE with bullae to medial aspect with surrounding erythema/induration) Skin Exam: pale, other (BLE edema, L>R, superimposed cellulitis to LLE with bullae to medial aspect with surrounding erythema/induration) Final Diagnosis/Problem List - Final Discharge Diagnosis/Problem (1) Bacteremia Current Visit: Yes Status: Acute Code(s): R78.81 - BACTEREMIA (2) Sepsis Current Visit: Yes Status: Acute (3) UTI (urinary tract infection) Current Visit: Yes Status: Acute Code(s): N39.0 - URINARY TRACT INFECTION, SITE NOT SPECIFIED (4) Cellulitis of left lower extremity Current Visit: Yes Status: Acute Code(s): L03.116 - CELLULITIS OF LEFT LOWER LIMB (5) DVT (deep venous thrombosis) Current Visit: Yes Status: Acute Code(s): I82.409 - ACUTE EMBOLISM AND THOMBOS UNSP DEEP VN UNSP LOWER EXTREMITY (6) Metastatic cancer Current Visit: Yes Status: Acute Code(s): C79.9 - SECONDARY MALIGNANT NEOPLASM OF UNSPECIFIED SITE - Discharge Disposition: DC TO OTHER HOSP Condition: Fair Prescriptions: New Lactobacillus Acidophilus [Acidophilus TABLET] 1 tab PO DAILY tablet Docusate Sodium 100 mg [Docusate Sodium 100 MG] 100 mg PO BIDPRN PRN cap PRN Reason: Constipation Norepinephrine Bitartrate/D5w [Norepinephrine 8 mg/250 ml-D5w] 8 mg IV .[id number] PRN PRN Reason: HYPOTENSION Piperacillin/Tazobactam 3.375G [Piperacillin/Tazobactam] 3.375 gm IV Q6HT Acetaminophen 325 mg [Tylenol 325 mg] 325 mg PO Q4H PRN PRN tablet PRN Reason: Pain, Fever, Headache Vancomycin/Water For Inj (Peg) [Vancomycin 1 Gram/200 ml Bag] 1 gm IV Q12H iv piggy Ondansetron HCl 4 mg/2 ml [Zofran 4 MG/2 ML VIAL] 4 mg IV Q6H PRN PRN PRN Reason: Nausea/Vomiting Continue Ferrous Sulfate [Iron Supplement] 65 mg PO DAILY Omeprazole 40 mg PO BID Mecobalamin [B12 Active] 1,000 mcg PO DAILY Warfarin Sodium 3 mg [Coumadin 3 MG] 3 mg PO UD Calcium Carbonate [Calcium] 600 mg PO DAILY Folic Acid 20 mg PO BID carvediloL [Carvedilol] 6.25 mg PO BID Atorvastatin Calcium 10 mg PO HS dexAMETHasone [Dexamethasone] 4 mg PO BID Meclizine HCl 25 mg [Antivert 25 mg] 25 mg PO TID PRN PRN Reason: Dizziness Warfarin Sodium 2 mg PO UD Follow up with: RINA SANCHEZ MD [Primary Care Provider] -
[2022-11-30 09:13] VITALS: RESP 27
[2022-11-30] MEDS: Decadron 4 MG PO SCH (09:54)
[2022-11-30] MEDS: Coreg PO SCH (09:55)
[2022-11-30 10:51] VITALS: BP 120/85; PULSE 73
[2022-11-30] MEDS ORDERED: TROUGH DRUG LEVELS IJ ONE (12:30)
[2022-12-03] MEDS ORDERED: JANTOVEN PO SCH (18:00)
== END 2022-11-30 10:26 ==
LOC: ED 17:16 → MED SURG 22:07 → ICU 11-29 13:59
PROVIDERS: ADMIT Internal Medicine; ATTEND Internal Medicine
DX: R78.81 Bacteremia (principal); N39.0 Urinary tract infection, site not specified; L03.116 Cellulitis of left lower limb; I82.409 Acute embolism and thrombosis of unspecified deep veins of unspecified lower extremity; C79.31 Secondary malignant neoplasm of brain; C34.90 Malignant neoplasm of unspecified part of unspecified bronchus or lung; M79.605 Pain in left leg; Z79.899 Other long term (current) drug therapy; Z20.828 Contact with and (suspected) exposure to other viral communicable diseases; Z79.01 Long term (current) use of anticoagulants
CPT/HCPCS: 36415; 80048; 80053; 81001; 83605; 83880; 84145; 85025; 85610; 87040; 87077; 87086; 87186; 93268; 93971; 94762; 96365; 96367; 96374; 99284; G0378; Q3014; J2405; J3010; A9270-GY; J3370

== ENCOUNTER 2022-12-05 10:38 | Inpatient (IN) | payer MEDICARE ==
--- NOTE | 2022-12-05 18:14 | PCM.SB.HP ---
Swing Bed H&P - Acute Care H&P in SB Record Acute H&P in Swing Bed Medical Record & valid with no change: Yes (67 year old female admitted for 14 days of ancef for strep cellulitis ) - Acute Care H&P Revisions as follows General Appearance: no apparent distress Neurologic: alert, oriented x 3, cooperative Eye Exam: PERRL/EOMI Ears, Nose, Throat Exam: normal ENT inspection Neck Exam: normal inspection Cardiovascular: edema (BLE edema +1) Gastrointestinal: soft Pelvic Exam: not done Rectal Exam: not done Back Exam: normal inspection Extremity Exam: swelling, other (LLE with open lesions x 3, no drainage noted on exam) - Acute Care ROS Revisions Constitutional: No Symptoms Eyes (ROS): No Symptoms Ears, Nose, & Throat: No Symptoms Respiratory: Cough Cardiac: Edema Abdominal/Gastrointestinal: No Symptoms Genitourinary Symptoms: No Symptoms Genitourinary Symptoms: No Symptoms Musculoskeletal: No Symptoms Skin: Cellulitis Neurological: No Symptoms Psychological: No Symptoms Endocrine: No Symptoms Hematologic/Lymphatic: No Symptoms Immunological/Allergic: No Symptoms
--- NOTE | 2022-12-05 18:26 | PCM.HP ---
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 Urinalysis showed UTI and patient was initially treated with broad spectrum abx and treated for septic shock and later transferred to a higher level of care at [facility]. Patient now stable. Cultures positive for strep/ecoli. Patient transferred to swing bed for 14 days of IV Ancef per ID recommendations. Patient endorses pain to LLE but states this has been improving as the swelling has gone down. Denies fever,cough, sob, cp, abdominal pain, CROSS, dizziness, N/V/D. - Review of Systems Constitutional: No Symptoms Eyes: No Symptoms Ears, Nose, & Throat: No Symptoms Respiratory: No Symptoms Cardiac: Edema Abdominal/Gastrointestinal: No Symptoms Genitourinary Symptoms: No Symptoms Musculoskeletal: No Symptoms Skin: Cellulitis, Skin Lesions Neurological: No Symptoms Psychological: No Symptoms Endocrine: No Symptoms Hematologic/Lymphatic: No Symptoms Immunological/Allergic: No Symptoms Medications & Allergies Home Medications: Home Medication List Ferrous Sulfate [Iron Supplement] 325 mg PO BID 04/15/12 [History Confirmed 12/05/22] Mecobalamin [B12 Active] 1,000 mcg PO DAILY 04/11/21 [History Confirmed 12/05/22] Omeprazole 40 mg PO BID 04/11/21 [History Confirmed 12/05/22] Atorvastatin Calcium 10 mg PO HS 11/28/22 [History Confirmed 12/05/22] dexAMETHasone [Dexamethasone] 4 mg PO BID 11/28/22 [History Confirmed 12/05/22] Apixaban [Eliquis] 5 mg PO BID 12/05/22 [History Confirmed 12/05/22] Cefazolin Sodium/Dextrose,Iso [Cefazolin-Dextrose 2 gm/100 ml] 2 gm IV Q8H 12/05/22 [History Confirmed 12/05/22] Cholecalciferol (Vitamin D3) [Vitamin D3] 10 mcg PO DAILY 12/05/22 [History Confirmed 12/05/22] Folic Acid 0.4 mg PO DAILY 12/05/22 [History Confirmed 12/05/22] Allergies/Adverse Reactions: Allergies Allergy/AdvReac Type Severity Reaction Status Date / Time Iodinated Contrast Media Allergy Verified 12/05/22 18:11 - Past Medical History Past Medical History: Yes Neurological History: Peripheral Neuropathy, Other ENT History: No Pertinent History Cardiac History: No Pertinent History Respiratory History: No Pertinent History, Other Endocrine Medical History: No Pertinent History, Other Musculoskelatal History: Osteoarthritis, Other GI Medical History: No Pertinent History History: No Pertinent History Pyscho-Social History: No Pertinent History Reproductive Disorders: No Pertinent History Comment: SOB AT TIMES, SJOGRENS SYNDROME, TRIGEMINAL NEUROPATHY, MIESHA Syndrome - Female History Are you now?: No - Past Surgical History Past Surgical History: Yes Neuro Surgical History: No Pertinent History Cardiac History: Cardiac Catheterization, Vascular Surgery, Other Respiratory Surgery: Other GI Surgical History: No Pertinent History Genitourinary Surgical Hx: No Pertinent History Musculskeletal Surgical Hx: No Pertinent History Female Surgical History: Hysterectomy, Lumpectomy Other Surgical History: vascular surgery on right hand, mino filter in left groin. lung surgery partial lobe removed right side - Social History Smoking Status: Never smoker Exposure to second hand smoke: Yes Alcohol: None Drug Use: none Significant Family History: no pertinent family hx - Physical Exam Vital Signs: Vital Signs - 24 hr Temp Pulse Resp BP Pulse Ox 12/05/22 16:48 96.9 F 72 16 140/75 94 L General Appearance: no apparent distress Neurologic Exam: alert, oriented x 3, cooperative Eye Exam: PERRL/EOMI Cardiovascular Exam: edema Gastrointestinal/Abdomen Exam: soft Pelvic Exam: not done Rectal Exam: not done Back Exam: normal inspection Extremity Exam: other (three open wounds to LLE, trace edema, no discharge noted) Skin Exam: pale Assessment/Plan (1) Bacteremia Current Visit: No Status: Acute Assessment & Plan: -Plan for 14 days of IV ancef per ID recs, patient to f/u with ID when course is complete Code(s): R78.81 - BACTEREMIA (2) Cellulitis of left lower extremity Current Visit: No Status: Acute Assessment & Plan: -see above Code(s): L03.116 - CELLULITIS OF LEFT LOWER LIMB (3) DVT (deep venous thrombosis) Current Visit: No Status: Acute Assessment & Plan: -On Eliquis, will continue, IVC filter Code(s): I82.409 - ACUTE EMBOLISM AND THOMBOS UNSP DEEP VN UNSP LOWER EXTREMITY (4) Metastatic cancer Current Visit: No Status: Acute Assessment & Plan: -Noted, patient follows with Dr. Clement Code(s): C79.9 - SECONDARY MALIGNANT NEOPLASM OF UNSPECIFIED SITE
[2022-12-05] MEDS ORDERED: CEFAZOLIN SODIUM IV SCH (19:00)
[2022-12-05] MEDS ORDERED: [UNRECOGNIZED DRUG - OTHER] IV SCH (19:00)
[2022-12-05] MEDS ORDERED: DEXTROSE IV SCH (19:00)
[2022-12-05] MEDS ORDERED: ELIQUIS 2.5 MG TABLET ONE (20:04)
[2022-12-05] MEDS ORDERED: CEFAZOLIN 2 GM-D5W BAG** 2 GM/50 ML ML IV ONE (20:05)
[2022-12-05] MEDS ORDERED: Zocor 10MG ONE (20:05)
[2022-12-05] MEDS: CEFAZOLIN 2 GM-D5W BAG** 2 GM/50 ML ML IV SCH (20:30)
[2022-12-05] MEDS: Decadron 4 MG PO SCH (20:31)
[2022-12-05] MEDS: Zocor 10MG PO SCH (20:31)
[2022-12-05] MEDS: FEOSOL 325 MG PO SCH (21:50)
[2022-12-05] MEDS ORDERED: ELIQUIS 2.5 MG TABLET PO SCH (22:00)
[2022-12-05] MEDS ORDERED: NON-FORMULARY ITEM (Atorvastatin Calcium [Atorvastatin Calcium] 10 MG Tablet) PO SCH (22:00)
[2022-12-05] MEDS ORDERED: NON-FORMULARY ITEM (Omeprazole [Omeprazole] 40 MG Capsule.Dr) PO SCH (22:00)
[2022-12-05] MEDS ORDERED: NON-FORMULARY ITEM (Apixaban [Eliquis] 5 MG Tablet) PO SCH (22:00)
[2022-12-06 05:15] LABS: Hematocrit 36.8 % (35-47); Hemoglobin 11.3 g/dL (12.0-16.0); Mean Cell Volume 96.6 fL (78-100); Mean Corpuscular Hemoglobin 29.7 pg (26-32); Mean Corpuscular Hgb Concent. 30.7 g/dL (32-36); Mean Platelet Volume 10.2 fL (7.5-11.0); Platelet Count 148 x10^3/uL (150-450); Red Blood Count 3.81 x10^6/uL (4.1-5.4); Red Cell Distribution Width 20.4 % (11.5-14.0); White Blood Count 9.9 x10^3/uL (4.0-10.5)
[2022-12-06] MEDS: CEFAZOLIN 2 GM-D5W BAG** 2 GM/50 ML ML IV SCH ×3 (05:22→22:57)
[2022-12-06 05:55] LABS: ANION GAP 7.6 MEQ/L (5-15); BLOOD UREA NITROGEN 18 mg/dL (7-17); CHLORIDE 108 mmol/L (98-107); Calcium 7.1 mg/dL (8.4-10.2); Carbon Dioxide 24 mmol/L (22-30); Creatinine 1 0.53 mg/dL (0.52-1.04); EST GLOMERULAR FILTRATION RATE > 60.0 ML/MIN; Glucose 107 mg/dL (74-106); PREALBUMIN 17.97 mg/dL (17.6-36.0); Potassium 4.5 mmol/L (3.5-5.1); SODIUM 135 mmol/L (137-145)
[2022-12-06] MEDS ORDERED: Aplisol ID ONE (10:00)
[2022-12-06] MEDS ORDERED: NON-FORMULARY ITEM (Folic Acid [Folic Acid] 0.4 MG Tablet) PO SCH (10:00)
[2022-12-06] MEDS ORDERED: NON-FORMULARY ITEM (Mecobalamin [B12 Active] 1,000 MCG Tab.Chew) PO SCH (10:00)
[2022-12-06] MEDS ORDERED: NON-FORMULARY ITEM (Cholecalciferol (Vitamin D3) [Vitamin D3] 10 MCG Capsule) PO SCH (10:00)
[2022-12-06] MEDS: Decadron 4 MG PO SCH ×2 (10:17→22:56)
[2022-12-06] MEDS: FEOSOL 325 MG PO SCH ×2 (10:17→22:56)
[2022-12-06] MEDS: VITAMIN D PO SCH (10:17)
[2022-12-06] MEDS: Protonix 40MG Tablet PO SCH ×2 (10:17→22:56)
[2022-12-06] MEDS: FOLATE 1 MG PO SCH (10:17)
[2022-12-06] MEDS: ELIQUIS 2.5 MG TABLET PO SCH ×2 (10:17→22:57)
[2022-12-06] MEDS: Vitamin B-12 500 MCG PO SCH (10:18)
[2022-12-06] MEDS: Zocor 10MG PO SCH (22:56)
[2022-12-07] MEDS: CEFAZOLIN 2 GM-D5W BAG** 2 GM/50 ML ML IV SCH ×3 (06:48→22:49)
[2022-12-07] MEDS: Vitamin B-12 500 MCG PO SCH (10:56)
[2022-12-07] MEDS: Decadron 4 MG PO SCH ×2 (10:56→22:49)
[2022-12-07] MEDS: FOLATE 1 MG PO SCH (10:56)
[2022-12-07] MEDS: Protonix 40MG Tablet PO SCH ×2 (10:56→22:49)
[2022-12-07] MEDS: FEOSOL 325 MG PO SCH ×2 (10:56→22:49)
[2022-12-07] MEDS: ELIQUIS 2.5 MG TABLET PO SCH ×2 (10:56→22:49)
[2022-12-07] MEDS: VITAMIN D PO SCH (10:56)
[2022-12-07] MEDS: Zocor 10MG PO SCH (22:49)
[2022-12-08] MEDS: CEFAZOLIN 2 GM-D5W BAG** 2 GM/50 ML ML IV SCH ×3 (06:28→21:49)
[2022-12-08] MEDS ORDERED: PHARMACY DOSING REQUEST MC ONE (08:28)
[2022-12-08] MEDS: VITAMIN D PO SCH (08:55)
[2022-12-08] MEDS: FOLATE 1 MG PO SCH (08:55)
[2022-12-08] MEDS: Decadron 4 MG PO SCH ×2 (08:55→21:48)
[2022-12-08] MEDS: ELIQUIS 2.5 MG TABLET PO SCH ×2 (08:55→21:49)
[2022-12-08] MEDS: Vitamin B-12 500 MCG PO SCH (08:55)
[2022-12-08] MEDS: Protonix 40MG Tablet PO SCH ×2 (08:55→21:49)
[2022-12-08] MEDS: FEOSOL 325 MG PO SCH ×2 (08:56→21:49)
[2022-12-08] MEDS: Zocor 10MG PO SCH (21:49)
[2022-12-09] MEDS: CEFAZOLIN 2 GM-D5W BAG** 2 GM/50 ML ML IV SCH ×3 (05:00→21:00)
[2022-12-09 05:02] LABS: Hematocrit 40.2 % (35-47); Hemoglobin 12.7 g/dL (12.0-16.0); Mean Cell Volume 94.8 fL (78-100); Mean Corpuscular Hgb Concent. 31.6 g/dL (32-36); Mean Platelet Volume 10.8 fL (7.5-11.0); Platelet Count 179 x10^3/uL (150-450); Red Blood Count 4.24 x10^6/uL (4.1-5.4); Red Cell Distribution Width 20.5 % (11.5-14.0); White Blood Count 13.5 x10^3/uL (4.0-10.5)
[2022-12-09 05:20] LABS: ALBUMIN 2.4 g/dL (3.5-5.0); ALKALINE PHOSPHATASE 80 U/L (38-126); ANION GAP 6.7 MEQ/L (5-15); BLOOD UREA NITROGEN 17 mg/dL (7-17); CHLORIDE 104 mmol/L (98-107); Calcium 7.7 mg/dL (8.4-10.2); Carbon Dioxide 29 mmol/L (22-30); EST GLOMERULAR FILTRATION RATE > 60.0 ML/MIN; Glucose 97 mg/dL (74-106); Potassium 4.7 mmol/L (3.5-5.1); SGOT/AST 19 U/L (14-36); SGPT/ALT 11 U/L (0-35); SODIUM 135 mmol/L (137-145); Total Protein 5.4 g/dL (6.3-8.2)
[2022-12-09 07:58] VITALS: RESP 16
--- NOTE | 2022-12-09 09:26 | PCM.NOTE ---
Date and Time: 12/09/22919 Subjective Assessment: Pt is in a Swing bed. 12/05 is a 67 year old female with a history of lung cancer (metastatic to the brain, has been on chemotherapy and radiation therapy) and a chronic history of DVT/PE (on coumadin and with an IVC filter in place) with recent admission 11/28/22 for Sepsis/Bacteremia/DVT/Cellulitis/UTI. Urinalysis showed UTI and patient was initially treated with broad spectrum abx and treated for septic shock and later transferred to a higher level of care at [facility]. Patient now stable. Cultures positive for strep/ecoli. Patient transferred to swing bed for 14 days of IV Ancef per ID recommendations. Patient endorses pain to LLE but states this has been improving as the swelling has gone down. Denies fever,cough, sob, cp, abdominal pain, CROSS, dizziness, N/V/D. 12/09 Pt sitting up in a chair today. She feels she is doing well today. Plan is to continue PT/OT and Ancef until 12/12 per recommendation of Infectious disease. LLLE continues to have some edema. It has been wrapped by PT. Pt reports some depression otherwise doing well. Denies fever,cough, sob, cp, abdominal pain, CROSS, dizziness, N/V/D. - Review of Systems Constitutional: No Fever, No Chills Eyes: No Symptoms Ears, Nose, & Throat: No Symptoms Respiratory: No Cough, No Short Of Breath Cardiac: Edema (LLE, wrapped), No Chest Pain, No Syncope Abdominal/Gastrointestinal: No Abdominal Pain, No Nausea, No Vomiting, No Diarrhea Genitourinary Symptoms: No Dysuria Musculoskeletal: No Back Pain, No Neck Pain Skin: No Rash Neurological: No Dizziness, No Focal Weakness, No Sensory Changes Psychological: No Symptoms, Depression Endocrine: No Symptoms Hematologic/Lymphatic: No Symptoms Immunological/Allergic: No Symptoms Objective Exam General Appearance: no apparent distress, alert Neurologic Exam: alert, oriented x 3, cooperative, normal mood/affect, nml cerebellar function, sensation nml, No motor deficits Skin Exam: normal color, warm, dry Wound Assessment: Skin/Wound Assessment Wound/Incision Assessment Start: 12/05/22 17:55 Text: Status: Active Freq: Q6H Protocol: Document 12/09/22 05:50 SM (Rec: 12/09/22 05:51 SM [id number]) Wound/Incision Assessment Left Lower Lateral Foot Wound Assessment Shift Assessment Wound Type Cellulitis Wound Stage Non Pressure Wound Dressing Status Dry & Intact Drainage Amount None Comment Xeroform, Gauze roll Left Lower Lateral Ankle Wound Assessment Admission Wound Type Cellulitis Wound Stage Non Pressure Wound Dressing Status Dry & Intact Drainage Amount None Comment Xeroform, Gauze roll Left Lateral Ankle Wound Assessment Admission Wound Type Cellulitis Wound Stage Non Pressure Wound Dressing Status Dry & Intact Drainage Amount None Comment Xeroform, Gauze roll Left Anterior Ankle Wound Assessment Admission Wound Type cellulitis Wound Stage Non Pressure Wound Dressing Status Dry & Intact Drainage Amount None Comment Xeroform, Gauze roll Left Calf Wound Assessment Admission Wound Type cellulitis Wound Stage Non Pressure Wound Dressing Status Dry & Intact Drainage Amount None Comment Xeroform, gauze roll Wound Photo Photo Taken Yes Date: 12/05/22 Comment: photos in chart Eye Exam: PERRL, EOMI, eyes nml inspection Ears, Nose, Throat Exam: normal ENT inspection, pharynx normal, moist mucous membranes Neck Exam: normal inspection, non-tender, supple, full range of motion Respiratory Exam: normal breath sounds, lungs clear, No respiratory distress Cardiovascular Exam: regular rate/rhythm, normal heart sounds Gastrointestinal/Abdomen Exam: soft, No tenderness, No mass Extremity Exam: normal inspection, normal range of motion, swelling (LLE, wrapped by PT) Back Exam: normal inspection, normal range of motion, No CVA tenderness, No vertebral tenderness Pelvic Exam: deferred Rectal Exam: deferred OBJECTIVE DATA Vital Signs: Vital Signs - 24 hr Temp Pulse Resp BP Pulse Ox 12/09/22 07:57 97.9 F 73 16 119/69 97 12/08/22 19:37 97.6 F 84 19 109/67 98 Pain Assessment - Last Documented Pain Intensity 0 Intake and Output: Intake & Output 12/06/22 12/07/22 12/08/22 12/09/22 11:59 11:59 11:59 11:59 Intake Total 960 2308 787 5462 Output Total 900 1550 2200 2500 Balance 43 -872 -4907 -5479 Weight 65 kg 65 kg Lab Results: Lab Results-Last 24 Hours 12/09/22 12/09/22 Range/Units 04:37 04:37 WBC 13.5 H (4.0-10.5) x10^3/uL RBC 4.24 (4.1-5.4) x10^6/uL Hgb 12.7 (12.0-16.0) g/dL Hct 40.2 (35-47) % MCV 94.8 (78-100) fL MCH 30.0 (26-32) pg MCHC 31.6 L (32-36) g/dL RDW 20.5 H (11.5-14.0) % Plt Count 179 (150-450) x10^3/uL MPV 10.8 (7.5-11.0) fL Sodium 135 L (137-145) mmol/L Potassium 4.7 (3.5-5.1) mmol/L Chloride 104 (98-107) mmol/L Carbon Dioxide 29 (22-30) mmol/L Anion Gap 6.7 (5-15) MEQ/L BUN 17 (7-17) mg/dL Creatinine 0.60 (0.52-1.04) mg/dL Estimated GFR > 60.0 ML/MIN Glucose 97 (74-106) mg/dL Calcium 7.7 L (8.4-10.2) mg/dL Total Bilirubin 0.70 (0.2-1.3) mg/dL AST 19 (14-36) U/L ALT 11 (0-35) U/L Alkaline Phosphatase 80 (38-126) U/L Serum Total Protein 5.4 L (6.3-8.2) g/dL Albumin 2.4 L (3.5-5.0) g/dL Assessment/Plan (1) Bacteremia Current Visit: No Status: Acute Assessment & Plan: -Plan for 14 days of IV ancef per ID recs, patient to f/u with ID when course is complete - Will be completed on 12/12/22 Code(s): R78.81 - BACTEREMIA (2) Cellulitis of left lower extremity Current Visit: No Status: Acute Assessment & Plan: -see above Code(s): L03.116 - CELLULITIS OF LEFT LOWER LIMB (3) DVT (deep venous thrombosis) Current Visit: No Status: Acute Assessment & Plan: On Eliquis, will continue, IVC filter Code(s): I82.409 - ACUTE EMBOLISM AND THOMBOS UNSP DEEP VN UNSP LOWER EXTREMITY (4) Metastatic cancer Current Visit: No Status: Acute Assessment & Plan: -Noted, patient follows with Dr. Clement Code(s): C79.9 - SECONDARY MALIGNANT NEOPLASM OF UNSPECIFIED SITE
[2022-12-09] MEDS: ELIQUIS 2.5 MG TABLET PO SCH ×2 (11:18→21:00)
[2022-12-09] MEDS: VITAMIN D PO SCH (11:18)
[2022-12-09] MEDS: Protonix 40MG Tablet PO SCH ×2 (11:18→21:00)
[2022-12-09] MEDS: FEOSOL 325 MG PO SCH ×2 (11:18→21:00)
[2022-12-09] MEDS: Vitamin B-12 500 MCG PO SCH (11:18)
[2022-12-09] MEDS: FOLATE 1 MG PO SCH (11:18)
[2022-12-09] MEDS: Decadron 4 MG PO SCH ×2 (11:41→21:00)
[2022-12-09] MEDS: Zocor 10MG PO SCH (21:00)
[2022-12-10] MEDS: CEFAZOLIN 2 GM-D5W BAG** 2 GM/50 ML ML IV SCH ×3 (05:13→22:46)
[2022-12-10] MEDS: Decadron 4 MG PO SCH ×2 (08:40→22:48)
[2022-12-10] MEDS: ELIQUIS 2.5 MG TABLET PO SCH ×2 (08:40→22:48)
[2022-12-10] MEDS: Vitamin B-12 500 MCG PO SCH (08:40)
[2022-12-10] MEDS: FEOSOL 325 MG PO SCH ×2 (08:40→22:48)
[2022-12-10] MEDS: Protonix 40MG Tablet PO SCH ×2 (08:40→22:48)
[2022-12-10] MEDS: FOLATE 1 MG PO SCH (08:40)
[2022-12-10] MEDS: VITAMIN D PO SCH (08:41)
[2022-12-10] MEDS ORDERED: PHARMACY DOSING REQUEST MC ONE (12:19)
[2022-12-10] MEDS ORDERED: TYLENOL 325 MG PO PRN (15:59)
[2022-12-10] MEDS ORDERED: Hydromorphone 1 mg/ml Injection IV PRN (17:03)
[2022-12-10] MEDS ORDERED: JANTOVEN PO SCH (18:00)
[2022-12-10] MEDS: Zocor 10MG PO SCH (22:49)
[2022-12-11 04:57] LABS: INR 1.03 (0.8-3.0); PROTIME 11.2 SECONDS (9.4-12.5)
[2022-12-11] MEDS: CEFAZOLIN 2 GM-D5W BAG** 2 GM/50 ML ML IV SCH ×2 (06:43→13:07)
[2022-12-11 06:50] VITALS: BP 108/65; PULSE 79; TEMP 98; O2SAT 96
[2022-12-11] MEDS: Protonix 40MG Tablet PO SCH (09:02)
[2022-12-11] MEDS: FEOSOL 325 MG PO SCH (09:02)
[2022-12-11] MEDS: Vitamin B-12 500 MCG PO SCH (09:02)
[2022-12-11] MEDS: FOLATE 1 MG PO SCH (09:02)
[2022-12-11] MEDS: ELIQUIS 2.5 MG TABLET PO SCH (09:02)
[2022-12-11] MEDS: VITAMIN D PO SCH (09:02)
[2022-12-11] MEDS: Decadron 4 MG PO SCH (09:02)
--- NOTE | 2022-12-11 11:20 | PCM.DS ---
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 Urinalysis showed UTI and patient was initially treated with broad spectrum abx and treated for septic shock and later transferred to a higher level of care at [facility]. Patient now stable. Cultures positive for strep/ecoli. Patient transferred to swing bed for 14 days of IV Ancef per ID recommendations. Patient endorses pain to LLE but states this has been improving as the swelling has gone down. Denies fever,cough, sob, cp, abdominal pain, CROSS, dizziness, N/V/D. 12/09 Pt sitting up in a chair today. She feels she is doing well today. Plan is to continue PT/OT and Ancef until 12/12 per recommendation of Infectious disease. LLLE continues to have some edema. It has been wrapped by PT. Pt reports some depression otherwise doing well. Denies fever,cough, sob, cp, abdominal pain, CROSS, dizziness, N/V/D. 12/11 Pt wants to go home with hospice today. She was scheduled for 1 more day of IV antibiotics but feels this will not make a difference and would like to go home. [facility] [employer] is the company she and family is working with. Case management has set up arrangements. She is wanting to continue blood thinners for DVT. Hospice is willing to take meds over. - Vitals & Intake/Output Vital Signs: Vital Signs Temperature 98.0 F 12/11/22 06:49 Pulse Rate 79 12/11/22 06:49 Respiratory Rate 16 12/11/22 06:49 Blood Pressure 108/65 12/11/22 06:49 O2 Sat by Pulse Oximetry 96 12/11/22 06:49 Intake & Output: Intake & Output 12/08/22 12/09/22 12/10/2220/23 11:59 11:59 11:59 11:59 Intake Total 960 1080 510 860 Output Total 2201 5380 875 0070 Balance -2599 -0172 -942 -8937 Weight 65 kg - Lab Result Diagrams: 12/09/22 04:37 12/09/22 04:37 Lab Results-Last 24 Hrs: Lab Results-Last 24 Hours 12/11/22 Range/Units 04:00 PT 11.2 (9.4-12.5) SECONDS INR 1.03 (0.8-3.0) - Procedures and Test Procedures and Tests throughout Hospitalization: Therapy Orders & Screens 12/05/22 11:58 PT Eval & Treat ( Order) ONCE Reason for Eval:: WEAKNESS, SWINGBED Diagnosis: DECONDITIONING R/T SEPSIS, CELLULITIS OT Eval and Treat ( Order) ONCE Comment: Physician Instructions: Reason For Exam: 12/05/22 17:55 PT Screen per Nursing Assess ONCE Comment: Protocol Order Physician Instructions: Greater than 3 points order PT Admission Screenin Reason For Exam: Triggered on Admission Diagnosis: DECONDITIONING R/T SEPSIS, CELLULITIS Open Wound/Cellutlitis/Pressure Ulcers: Yes Acute Fx/ORIF/Change in wt bearing status: No Severe MUSCULOSKELETAL pain: No ADL Dysfunction: Yes Acute CVA w/Hemiparesis/Hemiplegia: No Decreased Functional Mobility/Strength: Yes Sprain/Strain: No Acute Post-op Mobility Dysfunction: No Total Points: 9 12/08/22 08:50 PT Clarification Order ONCE Comment: Physician Instructions: Reason For Exam: PT Clarification: P.T. TO RX 5-6X/WK UNTIL D/C TO ADDRESS FUNCTIONAL MOBILITY AND GAIT TRAINING, THER EX, BALANCE AND ENDURANCE ACTIVITIES WELL W/C DEBRIDEMENT AND DRESSING MG'T TO MAXIMIZE POTENTIAL FOR SAFE RETURN HOME W/ FAMILY AND HHC. 12/09/22 13:50 OT Clarification Order ONCE Comment: Physician Instructions: Reason For Exam: OT Clarification: OT TO TX 5X/WK TO ADDRESS ADL AND FUNCTIONAL MOBILITY RE- EDUCATION VIA THERAPUETIC EXERCISES AND ACTIVITIES, A.E./DME TRAINING AND RECOMMENDATIONS ALL TO MAXIMIZE HER OVERALL FUNCTIONAL POTENTIAL FOR RETURN TO HOME WITH FAMILY AND C SUPPORT. Discharge Exam General Appearance: no apparent distress, alert Neurologic Exam: alert, oriented x 3, cooperative, normal mood/affect, nml cerebellar function, sensation nml, depressed mood/affect, No motor deficits Eye Exam: PERRL, EOMI, eyes nml inspection Ears, Nose, Throat Exam: normal ENT inspection, pharynx normal, moist mucous membranes Neck Exam: normal inspection, non-tender, supple, full range of motion Respiratory Exam: normal breath sounds, lungs clear, No respiratory distress Cardiovascular Exam: regular rate/rhythm, normal heart sounds Gastrointestinal/Abdomen Exam: soft, No tenderness, No mass Pelvic Exam: deferred Rectal Exam: deferred Back Exam: normal inspection, normal range of motion, No CVA tenderness, No vertebral tenderness Extremity Exam: normal inspection, normal range of motion, other (right foot pain) Skin Exam: normal color, warm, dry Wound Assessment: Skin/Wound Assessment Wound/Incision Assessment Start: 12/05/22 17:55 Text: Status: Active Freq: Q6H Protocol: Document 12/11/22 06:00 LB (Rec: 12/11/22 06:31 LB [id number]) Wound/Incision Assessment Left Lower Lateral Foot Wound Assessment Shift Assessment Wound Type Cellulitis Wound Stage Non Pressure Wound Dressing Status Dry & Intact Drainage Amount None Comment dressing CDI Left Lower Lateral Ankle Wound Assessment Shift Assessment Wound Type Cellulitis Wound Stage Non Pressure Wound Dressing Status Dry & Intact Drainage Amount None Comment dressing CDI Left Lateral Ankle Wound Assessment Shift Assessment Wound Type Cellulitis Wound Stage Non Pressure Wound Dressing Status Dry & Intact Drainage Amount None Comment dressing CDI Left Anterior Ankle Wound Assessment Shift Assessment Wound Type cellulitis Wound Stage Non Pressure Wound Dressing Status Dry & Intact Drainage Amount None Comment dressing CDI Left Calf Wound Assessment Shift Assessment Wound Type cellulitis Wound Stage Non Pressure Wound Dressing Status Dry & Intact Drainage Amount None Comment dressing CDI Wound Photo Photo Taken Yes Date: 12/05/22 Comment: photos in chart Final Diagnosis/Problem List - Final Discharge Diagnosis/Problem (1) Bacteremia Current Visit: No Status: Acute Code(s): R78.81 - BACTEREMIA (2) Cellulitis of left lower extremity Current Visit: No Status: Acute Code(s): L03.116 - CELLULITIS OF LEFT LOWER LIMB (3) DVT (deep venous thrombosis) Current Visit: No Status: Acute Code(s): I82.409 - ACUTE EMBOLISM AND THOMBOS UNSP DEEP VN UNSP LOWER EXTREMITY (4) Metastatic cancer Current Visit: No Status: Acute Assessment & Plan: (1) Bacteremia Current Visit: No Status: Acute Assessment & Plan: -Plan for 14 days of IV ancef per ID recs, patient to f/u with ID when course is complete - Will be completed on 12/12/2212/11 - pt wants to stop antibiotics Code(s): R78.81 - BACTEREMIA (2) Cellulitis of left lower extremity Current Visit: No Status: Acute Assessment & Plan: -see above Code(s): L03.116 - CELLULITIS OF LEFT LOWER LIMB (3) DVT (deep venous thrombosis) Current Visit: No Status: Acute Assessment & Plan: On Eliquis, will continue, IVC filter 12/11 - Take Coumadin 5mg tonight - Continue eliquis tonight and in the am - hospice to take over meds after that Code(s): I82.409 - ACUTE EMBOLISM AND THOMBOS UNSP DEEP VN UNSP LOWER EXTREMITY (4) Metastatic cancer Current Visit: No Status: Acute Assessment & Plan: -Noted, patient follows with Dr. Dennis 12/11 - pt has decided to go home with hospice today Code(s): C79.9 - SECONDARY MALIGNANT NEOPLASM OF UNSPECIFIED SITE - Discharge Discharge Date: 12/11/22 (Hospice- [facility]) Disposition: Home, Self-Care Condition: Stable Prescriptions: New Apixaban [Eliquis 2.5 mg Tablet] 5 mg PO BID 2 Days #2 tablet Warfarin Sodium 5 mg [Jantoven] 5 mg PO COU 1 Days #1 tablet Continue Ferrous Sulfate [Iron Supplement] 325 mg PO BID Omeprazole 40 mg PO BID Mecobalamin [B12 Active] 1,000 mcg PO DAILY Atorvastatin Calcium 10 mg PO HS dexAMETHasone [Dexamethasone] 4 mg PO BID Cholecalciferol (Vitamin D3) [Vitamin D3] 10 mcg PO DAILY Apixaban [Eliquis] 5 mg PO BID Cefazolin Sodium/Dextrose,Iso [Cefazolin 2 G/100 ml-Dextrose] 2 gm IV Q8H Folic Acid 0.4 mg PO DAILY Instructions: Palliative Care Follow up with: ALMA DELIA DENNIS [COURTESY STAFF] - 01/03/23 9:15 am YARON PRADO [NON-STAFF PHY W/O PRIVILEGES] - 01/07/23 1:30 pm
== END 2022-12-11 14:38 | disposition home or self-care (01) | DRG 872 ==
LOC: MED SURG 16:39
PROVIDERS: ADMIT Internal Medicine; ATTEND Internal Medicine
DX: R78.81 Bacteremia (principal); L03.116 Cellulitis of left lower limb; I82.409 Acute embolism and thrombosis of unspecified deep veins of unspecified lower extremity; C71.9 Malignant neoplasm of brain, unspecified; N39.0 Urinary tract infection, site not specified; M35.00 Sjogren syndrome, unspecified; Z79.899 Other long term (current) drug therapy; Z20.828 Contact with and (suspected) exposure to other viral communicable diseases; Z85.118 Personal history of other malignant neoplasm of bronchus and lung; Z86.718 Personal history of other venous thrombosis and embolism; Z79.01 Long term (current) use of anticoagulants
CPT/HCPCS: 36415; 80048; 80053; 84134; 85027; 85610; J0690; J1170; J1642; Q3014; 97110-GP; A9270-GY